=== PATIENT | female | born 1960 | race Caucasian/White ===

== ENCOUNTER 2016-07-08 00:16 | Observation (INO) ==
[2016-07-08] MEDS ORDERED: ALTEPLASE IVP ONE (00:41)
[2016-07-08] MEDS ORDERED: ALTEPLASE IVPB ONE (00:41)
--- NOTE | 2016-07-08 00:48 | Emergency Department Note ---
Disposition Clinical Impression: Stroke-like symptoms, Left-sided weakness Disposition: Admitted As Inpatient Condition: Good Time of Disposition: 02:20 Neuro HPI - General Chief Complaint: ED Neuro Symptoms/Deficit Stated Complaint: balance off// vision problems Time Seen by Provider: 07/08/16 00:29 Source: patient Limitations: no limitations Nursing Notes Reviewed: Yes Vital Signs Reviewed: Yes - History of Present Illness HPI Narrative: Patient presents emergency room with complaint of drifting while walking left- sided weakness and left-sided facial tingling and blurry vision left eye. Onset was approximately 2100 hrs. denies any other symptoms prior to this no other medical history. Onset of Symptoms Date: 07/07/16 Onset of Symptoms Time: 01:56 Symptom Onset Unknown: Yes Timing confirmed by: other Location: left face, left arm, left leg, ataxia History of same: No Severity: mild Quality: weakness Symptoms Improving: No Improves with: none Worsens with: none Context: sudden onset On Anticoagulants: No Associated symptoms: Reports: denies other symptoms Treatments Prior to Arrival: none - Related Data Home Medications: Home Medications Medication Instructions Recorded Confirmed Ibuprofen 02/29/16 02/29/16 Neurontin 02/29/16 Previous Rx's Medication Instructions Recorded Amoxicillin/Clavulanate [Augmentin] 875 mg PO BIDWM #20 tablet 02/29/16 Cyclobenzaprine HCl 5 mg PO TID PRN #30 tablet 02/29/16 MethylPREDNISolone [Medrol] See Taper PO DAILY #21 tablet 02/29/16 Tramadol HCl [Ultram] 50 mg PO TID PRN #9 tab 02/29/16 Allergies/Adverse Reactions: Allergies Allergy/AdvReac Type Severity Reaction Status Date / Time ketoprofen [From Orudis] Allergy Itching Verified 02/29/16 18:42 nabumetone [From Relafen] Allergy Itching Verified 02/29/16 18:42 All systems ED: reviewed and negative except as stated. Eyes: Denies: eye pain Cardiovascular: Denies: chest pain Genitourinary: Denies: dysuria, frequency Neurological: Reports: abnormal gait. Denies: headache, weakness Past Medical History - Past Medical History Attestation: Yes The following information was validated with the patient. Source: patient Medical history: Reports: fibromyalgia, migraine, other Psychiatric history: Reports: no psych history - Social History Smoking Status: Current every day smoker Smokeless Tobacco Status: No Alcohol use: Reports: rarely Drug use: Reports: none Physical Exam - General Limitations: no limitations General appearance: alert, in no apparent distress - Head Head exam: atraumatic, normocephalic, normal inspection - Eye Eye exam: Present: normal appearance, PERRL, EOMI, other (Left-sided ptosis) - Chest Chest inspection: Present: normal inspection, symmetric chest wall rise - Respiratory Respiratory exam: Present: normal lung sounds bilaterally - Extremities Exam Extremities exam: Present: normal inspection, full ROM, normal capillary refill. Absent: tenderness, pedal edema - Back Exam Back exam: Present: normal inspection - Neurological Exam Neurological exam: Present: alert, oriented X3, CN II-XII intact, normal gait, motor sensory deficit (Left-sided shaking in the extremities as well as decreased sensation to the left side of the face) - Skin Skin exam: Present: warm, dry, intact, normal color Course Course Narrative: Patient seen and examined the time of arrival. See history of present illness. 56-year-old female presents with what appears to be acute onset of strokelike symptoms. Stroke alert was called immediately on presentation. Patient had blurry vision left eye decreased sensation left side of the face as well as shaking to the left upper and left lower extremity with cerebellar function testing. An aortic stroke scale on my evaluation the bedside appears to be 3- 4. Patient to have stroke alert protocol followed at this time. Vital signs reviewed. No other specific medical history. She has a migraines and fibromyalgia but is never like this before. Denies any recent illnesses injuries trauma or symptoms. Denied chest pain shortness of breath headache vision changes nausea vomiting or diarrhea prior to the events today. Denies any other concerns at this point. Patient is still focally having the symptoms at this time. We will continue to monitor stroke alert protocol is followed. Labs CT imaging stroke robot as well as EKG to be established at this time. - Reevaluation(s) Reevaluation #1: CAT scan imaging is negative for acute intracranial related bleed. Detailed review and bedside evaluation was completed by the [facility] neurosurgeon Dr. montilla at the time of his evaluation patient had an and a stroke scale of 1. Mild symptoms noted on evaluation and did not recommend TPA. Recommended further inpatient evaluation for strokelike symptoms. We will call to the patient's labs here in the discuss admission process with the hospitalist. Consult neurology was replaced. Patient is otherwise stable comfortably in the bed. Will treat with migraine cocktail with the patient continues to complain of pain. Otherwise patient still resting comfortably in the bed. To monitor his workup and treatment course are completed Time: :17 Reevaluation #2: Patient was discussed with the hospitalist Dr. Gamez. The patient's symptoms presentation neurologic evaluation and consultation at [facility]. No other recommendations at this time except of participation first dose aspirin. Patient is otherwise stable resting comfortably in the bed. Admission process to be completed this time. We will continue to monitor here in the emergency room and admission process is completed Time: :17 Vital Signs Temperature 97.4 F L 07/08/16 00:17 Pulse Rate 75 07/08/16 00:17 Respiratory Rate 18 07/08/16 00:17 Blood Pressure 139/87 07/08/16 00:17 O2 Sat by Pulse Oximetry 100 07/08/16 00:17 Temperature 97.4 F L 07/08/16 00:17 Pulse Rate 77 07/08/16 02:06 Respiratory Rate 20 07/08/16 02:06 Blood Pressure 107/87 07/08/16 02:06 O2 Sat by Pulse Oximetry 95 07/08/16 02:06 Oxygen Delivery Oxygen Delivery Room Air Neuro Symptoms/Deficit - MDM Narrative Medical decision making narrative: Strokelike symptoms, left-sided weakness - Medical Records Medical records reviewed: Yes I reviewed the patient's medical records. - Lab Data Lab results reviewed: Yes I reviewed the patient's lab results. Result diagrams: 07/08/16 00:46 07/08/16 00:46 Lab Results 07/08/16 07/08/16 07/08/16 Range/Units 00:29 00:46 00:46 WBC 8.1 (4.3-11.1) K/mcL RBC 4.00 (3.82-4.97) M/mcL Hgb 12.8 (11.5-15.4) g/dL Hct 38.0 (35.3-44.9) % MCV 95.0 (83.0-100.0) fL MCH 32.0 (28.0-33.3) pg MCHC 33.7 (31.6-35.5) g/dL RDW 12.6 (11.5-14.5) % Plt Count 177 (140-400) K/mcL MPV 10.2 (9.4-12.4) fL Immature Gran % 0.2 (0-4) % Seg Neutrophils % 44.2 % Lymphocytes % 44.6 % Monocytes % 5.8 % Eosinophils % 4.0 % Basophils % 1.2 % Neutrophils # 3.6 (1.6-8.9) K/mcL Lymphocytes # 3.6 (0.6-4.6) K/mcL Monocytes # 0.5 (0.0-1.3) K/mcL Eosinophils # 0.3 (0.0-0.6) K/mcL Basophils # 0.1 (0.0-0.2) K/mcL PT 11.3 (9.4-12.1) Seconds INR 1.0 APTT 32.0 (26.0-36.0) Seconds Sodium (136-145) mEq/L Potassium (3.5-4.5) mEq/L Chloride (98-109) mEq/L Carbon Dioxide (19-29) mEq/L BUN (7-20) mg/dL Creatinine (0.57-1.11) mg/dL Est GFR ( Amer) (> 60) Est GFR (Non-Af Amer) (> 60) BUN/Creatinine Ratio (6-26) Glucose (70-99) mg/dL POC Glucose 129 H (58-89) Calculated Osmolality (280-300) Calcium (8.6-10.8) mg/dL Troponin I (0-0.03) ng/mL Urine Color (Yellow) Urine Clarity (Clear) Urine pH (5.0-8.0) pH Units Ur Specific [place] (1.010-1.025) Urine Protein (Neg-Trace) mg/dL Urine Glucose (UA) (Normal) mg/dL Urine Ketones (Negative) mg/dL Urine Blood (Negative) Urine Nitrite (Negative) Urine Bilirubin (Negative) Urine Urobilinogen (Normal) mg/dL Ur Leukocyte Esterase (Negative) Ur Culture Indicated? (NO) 07/08/16 07/08/16 07/08/16 Range/Units 00:46 00:46 01:49 WBC (4.3-11.1) K/mcL RBC (3.82-4.97) M/mcL Hgb (11.5-15.4) g/dL Hct (35.3-44.9) % MCV (83.0-100.0) fL MCH (28.0-33.3) pg MCHC (31.6-35.5) g/dL RDW (11.5-14.5) % Plt Count (140-400) K/mcL MPV (9.4-12.4) fL Immature Gran % (0-4) % Seg Neutrophils % % Lymphocytes % % Monocytes % % Eosinophils % % Basophils % % Neutrophils # (1.6-8.9) K/mcL Lymphocytes # (0.6-4.6) K/mcL Monocytes # (0.0-1.3) K/mcL Eosinophils # (0.0-0.6) K/mcL Basophils # (0.0-0.2) K/mcL PT (9.4-12.1) Seconds INR APTT (26.0-36.0) Seconds Sodium 140 (136-145) mEq/L Potassium 4.1 (3.5-4.5) mEq/L Chloride 106 (98-109) mEq/L Carbon Dioxide 27 (19-29) mEq/L BUN 15 (7-20) mg/dL Creatinine 0.83 (0.57-1.11) mg/dL Est GFR ( Amer) > 60 (> 60) Est GFR (Non-Af Amer) > 60 (> 60) BUN/Creatinine Ratio 18 (6-26) Glucose 112 H (70-99) mg/dL POC Glucose (58-89) Calculated Osmolality 292 (280-300) Calcium 9.3 (8.6-10.8) mg/dL Troponin I 0.01 (0-0.03) ng/mL Urine Color Yellow (Yellow) Urine Clarity Clear (Clear) Urine pH 5.5 (5.0-8.0) pH Units Ur Specific [place] 1.027 H (1.010-1.025) Urine Protein Negative (Neg-Trace) mg/dL Urine Glucose (UA) Normal (Normal) mg/dL Urine Ketones Negative (Negative) mg/dL Urine Blood Negative (Negative) Urine Nitrite Negative (Negative) Urine Bilirubin Negative (Negative) Urine Urobilinogen Normal (Normal) mg/dL Ur Leukocyte Esterase Negative (Negative) Ur Culture Indicated? NO (NO) - Radiology Data Radiology results reviewed: Yes I reviewed the patient's radiology results. CT that is negative. Chest x-ray is negative - EKG Data EKG attestation: Yes I reviewed and interpreted this EKG. EKG shows normal: sinus rhythm, axis, intervals, QRS complexes, ST-T waves Rate: normal Rhythm: NSR, PVC's [place]/QRS: normal When compared to previous EKG there are: no significant changes Interpretation: no acute changes, normal EKG (10/04/08), unchanged when compared to prior tracing (date) NIH Stroke Scale - Level of Consciousness LOC: Alert - LOC Questions LOC Questions: Answers both correctly - LOC Commands LOC Commands: Performs both correctly - Best Gaze Best Gaze: Normal - Visual Visual: No visual loss - Facial Palsy Facial Palsy: Normal - Motor Arms Motor Arm-Left: Drift, does NOT hit bed Motor Arm-Right: No drift for 10 seconds - Motor Legs Motor Leg-Left: Drift, does NOT hit bed Motor Leg-Right: No drift for 5 seconds - Limb Ataxia Limb Ataxia: Present in ONE limb - Sensory Sensory: Mild to moderate loss, "not as sharp" - Best Language Best Language: No aphasia - Dysarthria Dysarthria: Normal - Extinction and Inattention Extinction and Inattention: Normal - NIHSS Total Score NIHSS Total Score: 4 TPA Checklist - Eligibilty for IV tPA 1. LKW equal to or less than 4.5 hours be before treatment: Yes 2. Clinical diagnosis of ischemic stroke causing deficit: Yes 3. Age 18 years or older: Yes - Contraindications 4. Evidence of intracranial hemorrhage on pretreatment CT: No 5. Presentation suggests subarachnoid hem, even if CT normal: No 6. CT shows multilobar infarction: No 7. History of intracranial hemorrhage: No 8. Known neoplasm, arteriovenous malformation, or aneurysm: No 9. Significant head trauma (w/ LOC) or CVA in last 3 months: No 10. Intracranial or intraspinal surgery in 3 months: No 11. Arterial puncture at non-compressable site/LP in 7 days: No 12. BP elevated (systolic > 185 or diastolic > 110): No 13. Abnormal Blood Glucose (<50 or >400mg/dl): No 14. Active internal bleeding: No 15. Known bleeding risk (including; not limited to 16-18): No 16. Heparin/argatroban/bivalirudin w/in 48hrs & PTT > normal: No 17. Platelet count less than 100,000/MM3: No 18. Current or recent use of anticoagualants (see protocol): No - Relative Contraindications 19. Only minor or rapidly improving stroke symptoms: Yes 20. Seizure at onset w/ postictal residual neuro impairments: No 21. : No 22. Current/recent use Effient (7 days) or Brilinta (5 days): No 23. Major surgery or serious truama in last 14 days: No 24. GI or urinary tract hemorrhage in last 21 days: No 25. Myocardial infarction within last 3 months: No - LKW: 3-4.5 hrs Add. Contraindications 26. Age greater than 80 years: No 27. Taking an oral anticoagualant regardless of INR: No 28. Severe CVA as assessed (NIHSS > 25) or by imaging: No 29. Combination of previous CVA AND diabetes: No Critical Care Time Critical Care Time: Yes Total Critical Care Time: 35 Attestation: Independent of medical management and ER treatment course Critical care performed: Time is exclusive of separately billable procedures. Time includes: direct patient care, patient reassessment, coordination of patient care, interpretation of data (laboratory data, radiology data, and respiratory data), review of patient's medical records, medical consultation and documentation of patient care. Procedures included in critical care time: Procedures excluded from critical care time: Attestation Statement - Attestation Attestation: IJosh MD, personally evaluated this patient and discussed their management with the resident physician. I reviewed the resident's note and agree with the documented findings, medical decision making, and plan of care. 56-year-old female presented to the emergency department with strokelike symptoms which started approximately 3 hours prior to arrival. She complains that she was at work when she noticed that she was having trouble thinking. She then developed some visual changes and states that the vision in her left eye appeared to be "layers. She felt off balance and Falling to the left with walking. She did not fall down or injure herself. She had an episode of left occipital pain which lasted for about 5 minutes and then developed numbness on the left side of her head and left side of her face. Symptoms have improved since onset On examination patient is a well-developed well-nourished female in no acute distress. She is alert and oriented 3. There is no cyanosis or diaphoresis. Speech is clear. He has mild left facial drooping and decreased sensation to touch in the left face. Otherwise no gross focal neurological deficits. Neck is supple and nontender with full range of motion. Breath sounds are clear and equal bilaterally. Heart regular rate and rhythm. Abdomen soft and nontender with normal bowel sounds. Stroke alert head CT obtained and was negative. Labs reviewed. No acute abnormality on EKG. Patient was evaluated by the [facility] neurologist via the stroke robot and the neurologist recommended no TPA but hospital admission for further evaluation. The hospitalist, Dr. [email or web address], was consulted and accepted admission of the patient.
[2016-07-08 00:56] LABS: Basophils # 0.1 K/mcL (0.0-0.2); Basophils % 1.2 %; Eosinophils # 0.3 K/mcL (0.0-0.6); Hemoglobin 12.8 g/dL (11.5-15.4); Immature Granulocytes % 0.2 % (0-4); Lymphocytes # 3.6 K/mcL (0.6-4.6); Lymphocytes % 44.6 %; Mean Corpuscular HGB Conc 33.7 g/dL (31.6-35.5); Mean Platelet Volume 10.2 fL (9.4-12.4); Monocytes # 0.5 K/mcL (0.0-1.3); Monocytes % 5.8 %; Neutrophils # 3.6 K/mcL (1.6-8.9); Platelet Count 177 K/mcL (140-400); Red Cell Distribution Width 12.6 % (11.5-14.5); Segmented Neutrophils % 44.2 %
[2016-07-08 01:06] LABS: Prothrombin Time 11.3 Seconds (9.4-12.1)
[2016-07-08 01:07] LABS: BUN/Creatinine Ratio 18 (6-26); Blood Urea Nitrogen 15 mg/dL (7-20); Calcium 9.3 mg/dL (8.6-10.8); Carbon Dioxide 27 mEq/L (19-29); Chloride 106 mEq/L (98-109); Glucose 112 mg/dL (70-99); Osmolality,Calculated 292 (280-300); Potassium 4.1 mEq/L (3.5-4.5); Sodium 140 mEq/L (136-145); eGFR For African Americans > 60 (> 60); eGFR For Non-African Americans > 60 (> 60)
[2016-07-08 02:02] LABS: Bilirubin,Urine Negative (Negative); Blood,Urine Negative (Negative); Clarity,Urine Clear (Clear); Color,Urine Yellow (Yellow); Glucose,Urine (UA) Normal (Normal); Ketones,Urine Negative (Negative); Leukocyte Esterase,Urine Negative (Negative); Nitrite,Urine Negative (Negative); PH,Urine 5.5 pH Units (5.0-8.0); Protein,Urine Negative (Neg-Trace); Specific Gravity,Urine 1.027 (1.010-1.025); Urobilinogen,Urine Normal (Normal)
[2016-07-08] MEDS ORDERED: Aspirin 81 MG TAB.CHEW PO ONE (02:03)
[2016-07-08] MEDS ORDERED: Acetaminophen 325 MG TABLET PO PRN ×2 (03:32→03:42)
[2016-07-08] MEDS ORDERED: Naloxone 0.4 MG/ML INJ IVP PRN (03:32)
[2016-07-08] MEDS ORDERED: *HR* Promethazine 25 MG/ML VIAL IVP PRN (03:32)
[2016-07-08] MEDS ORDERED: *HR* Morphine 2 MG/ML SYRINGE IVP PRN (03:32)
[2016-07-08] MEDS ORDERED: Acetaminophen 650 MG RECTAL SUPP RC PRN (03:43)
--- NOTE | 2016-07-08 03:48 | Internal Med History&Physical ---
Date of Encounter: 07/08/16 Time of Encounter: 03:30 Assessment and Plan (1) Left-sided weakness Current visit: Yes Status: Acute . (2) Stroke-like symptoms Current visit: Yes Status: Acute . (3) Impaired vision Current visit: Yes Status: Acute . (4) Impairment of balance Current visit: Yes Status: Acute . (5) Chronic headache disorder Current visit: Yes Status: Chronic . Qualifiers: Headache type: tension-type Intractability: not intractable Qualified Code(s): G44.229 - Chronic tension-type headache, not intractable (6) Chronic mixed headache syndrome Current visit: Yes Status: Chronic . (7) History of migraine headaches Current visit: Yes Status: Chronic . (8) Migraine equivalent syndrome Current visit: Yes Status: Acute . (9) Obesity (BMI 30-39.9) Current visit: Yes Status: Chronic . (10) Nicotine dependence with nicotine-induced disorder Current visit: Yes Status: Chronic . Qualifiers: Nicotine product type: cigarettes Qualified Code(s): F17.219 - Nicotine dependence, cigarettes, with unspecified nicotine-induced disorders (11) Transient ischemic attack (TIA) Current visit: Yes Status: Acute . Qualifiers: Transient cerebral ischemia type: unspecified Qualified Code(s): G45.9 - Transient cerebral ischemic attack, unspecified (12) Fibromyalgia Current visit: Yes Status: Chronic . (13) Chronic neck and back pain Current visit: Yes Status: Chronic . (14) Delirium due to general medical condition Current visit: Yes Status: Acute . Internal Medicine - H&P: HPI Chief complaint: Vision problems. Balance off. Left-sided weakness. Admitted From: Emergency Dept Plans for Post Hospital Care: Home History of present illness: Ms. Meraz is a 56 year old female with medical history significant for hypertension, dyslipidemia, fibromyalgia syndrome, osteoarthritis, morbid obesity, situational anxiety/?PTSD, history of migraines headaches, chronic daily headaches/chronic neck and back pain, nicotine dependency. The patient was admitted to [facility] through the emergency department with presented with concerns acute alteration in perception. She reported a complaint of feeling like drifting to the left while attempting to walk with ataxic, unsteadiness of gait. A feeling of left-sided weakness. A feeling of left facial tingling. Acute kaleidoscopic, blurring of vision primarily of the left eye. She described this as identical 3D images stacked back to back to back extending outwards into space. Normally very sharp and quick witted describes her as being very slow in responses and slow and cautious and in any physical movement. Upon presentation a stroke alert was called. Protocol discussion of case [facility] neurosurgeon. Initial CT scan of the head was negative for acute intracranial-related hemorrhage or gross abnormality. At the time of this evaluation the patient's stroke scale added showed measurable improvement from an initial high "4" down to "1". Mild symptoms noted on evaluation both motor and sensory. No aphasia. No vision loss. No gross facial palsy. TPA initiation was not recommended. The impression evaluation for stroke symptoms was advised. Findings in the being noted that normal vital signs. Afebrile. WBC 8.1 hemoglobin 12 platelets 177,000. Differential normal. PT 11.3 INR 1 PTT 32. Metabolic panel was normal. BUN 15 creatinine 0.83. Glucose 129 osmolality 292. Initial troponin 0.01. Urinalysis negative. EKG normal sinus rhythm with premature ventricular contractions noted. No acute ischemic changes apparent. Preliminary impression suggests transient ischemic accident with transient neuro deficits consistent with stroke syndrome. However presentation also finds very prominent features of chronic, daily headaches (mixed features) stemming from a chronic (posttraumatic ) neck and back pains. The patient's prior history of "classic", migraine headaches raises question of possible migrainous equivalent as motivation of current sensory and motor deficits. She does not acknowledge a classic migraine headaches she does present neck and occipital headache symptoms. Although she does not describe a classic aura or scotomata, very stereotypic kaleidoscopic vision deficits she describes may indeed be a scotomatous equivalent. The patient presents risk for acute clinical decline with her current presentation. Workup and treatments will proceed comprehensively. The patient was visited and interviewed and examined. At the time of this examination she was less alert (likely medicated) and somewhat delirious. served as the validating source for history of events and the circumstances. Cumulative laboratory and radiographic database was reviewed and considered. Consultative opinions will be sought as clinical circumstances justify. Initial consultative opinion has been requested of neurology. Plan of care has been discussed in detail with patient's at the bedside. Questions addressed. Hospital course will be dependent upon clinical findings, treatment response and potential consultative interventions. Given the patient's presenting concerns, past medical history, clinical findings and symptoms, she is admitted at this time to undergo further evaluation and disposition. Orders were written as per the computerized physician country printer system. Condition is serious. Prognosis is guarded. CODE STATUS is full. Past Med Surg Social Fam HX - Past Medical History Source: old records reviewed Medical history: arthritis, fibromyalgia, hyperlipidemia, migraine, other Psychiatric history: anxiety, PTSD, other - Past Surgical History Surgical History: hysterectomy, other - Social History Smoking Status: Current every day smoker Packs per day: 1 Smokeless Tobacco Status: No Alcohol use: rarely Drug use: none, unknown Occupational status: employed Current living situation: Home, With Family Activity Level: Independent ambulation, Mostly sedentary Recent Out of Country Travel Within the Last 8 Weeks: No Exposure or Possible Exposure to Illness During Travel: No - Family History Mother Hx Family Musculoskeletal Disorders: Yes (joint replaced) Hx Family Reproductive Disorders: Yes (hysterectomy) Father Hx Family Cardiac Disorders: Yes (heart attacks) Hx Family Cancer: Yes (prostate) Internal Medicine - H&P: Meds Amoxicillin/Clavulanate [Augmentin] 875 mg PO BIDWM #20 tablet 02/29/16 [Rx] Cyclobenzaprine HCl 5 mg PO TID PRN #30 tablet 02/29/16 [Rx] Ibuprofen 02/29/16 [History] MethylPREDNISolone [Medrol] See Taper PO DAILY #21 tablet 02/29/16 [Rx] Neurontin 02/29/16 [History] Tramadol HCl [Ultram] 50 mg PO TID PRN #9 tab 02/29/16 [Rx] Allergies ketoprofen [From Orudis] Allergy (Verified 02/29/16 18:42) Itching nabumetone [From Relafen] Allergy (Verified 02/29/16 18:42) Itching ROS unobtainable: due to mental status All Systems PM: A 10-system review of systems was performed and is negative for pertinent findings except as documented above in the HPI. During the time of my exam the patient was mildly encephalopathic/delirium. She was not been effective historian of circumstances and events. Details were thus collected from records , EMS and ED staff triage and at the bedside. - Constitutional Constitutional: as per HPI - EENT Eyes: as per HPI Ears: as per HPI Nose, mouth and throat: as per HPI - Cardiovascular Cardiovascular ROS IM: as per HPI - Respiratory Respiratory: as per HPI - Gastrointestinal Gastrointestinal: as per HPI - Genitourinary Genitourinary: as per HPI Menstruation: as per HPI - Musculoskeletal Musculoskeletal ROS IM: as per HPI - Integumentary Integumentary IM: as per HPI - Neurological Neurological ROS: as per HPI - Psychiatric Psychiatric: as per HPI - Endocrine Endocrine IM: as per HPI - Hematologic/Lymphatic Hematologic/Lymphatic: as per HPI - Allergic/Immunologic Allergic/Immunologic: as per HPI - Constitutional Vitals: Temp Pulse Resp BP Pulse Ox 97.4 F L 61 18 132/118 95 07/08/16 03:30 07/08/16 03:30 07/08/16 03:30 07/08/16 03:30 07/08/16 03:30 Vital Signs Temp Pulse Resp BP Pulse Ox 07/08/16 03:30 97.4 F L 61 18 132/118 95 07/08/16 03:01 18 132/85 07/08/16 02:46 75 18 132/85 94 07/08/16 02:06 77 20 107/87 95 07/08/16 01:10 72 18 132/83 98 07/08/16 00:17 97.4 F L 75 18 139/87 100 Intake and Output 07/07/16 07/07/16 07/08/16 15:59 23:59 07:59 Other: Weight 93.1 kg Blood Glucose* 129 Patient Weight 07/08/16 23:59 Weight 93.1 kg General appearance: Present: cooperative, A&O X 2, mild distress, morbidly obese - Head Head exam: Present: atraumatic, normocephalic - Eye Eye exam: Present: EOMI, PERRL, conjuntiva pink, sclera anicteric Pupils: Present: normal accommodation, PERRL - ENT ENT exam: Present: mucous membranes moist, normal oropharynx - Neck Neck exam general surgery: Present: tenderness, supple, trachea midline. Absent : lymphadenopathy, nuchal rigidity - Respiratory Respiratory exam: Present: decreased breath sounds, CTAB. Absent: accessory muscle use, rales, rhonchi, stridor, wheezes - Cardiovascular Cardiovascular exam: Present: distant heart sounds, RRR, +S1, +S2. Absent: diastolic murmur, gallop, rubs, systolic murmur - GI/Abdominal GI/Abdominal exam: Present: diminished bowel sounds, soft, no peritoneal signs. Absent: distended, tenderness - Extremities Exam Extremities exam: Present: warm, radial pulses palpable and symetrical. Absent : calf tenderness, cyanotic, pedal edema - Neurological Exam Neurological exam: Present: alert, altered, CN II-XII intact, no focal deficits. Absent: oriented X3, pronater drift, facial droop, speech deficit - Expanded Neurological Exam Neurological exam expanded: Present: ataxia, inattentive, protecting the airway. Absent: expressive aphasia, receptive aphasia, tremor Patient oriented to: Present: person, place. Absent: time Speech: Present: garbled Coma Scale Eye Opening: To Pain Coma Scale Motor Response: Localizes to Pain Coma Scale Verbal Response: Confused Coma Scale Total: 11 - Psychiatric Psychiatric exam: Present: flat affect - Skin Skin exam: Present: dry, intact, warm. Absent: petechiae, rash, urticaria, vesicles Internal Med - H&P Results - Labs CBC & Chem 7: 07/08/16 00:46 07/08/16 04:14 Labs: Short CBC 07/08/16 Range/Units 00:46 WBC 8.1 (4.3-11.1) K/mcL Hgb 12.8 (11.5-15.4) g/dL Hct 38.0 (35.3-44.9) % Plt Count 177 (140-400) K/mcL Neutrophils # 3.6 (1.6-8.9) K/mcL BMP 07/08/16 Range/Units 00:46 Sodium 140 (136-145) mEq/L Potassium 4.1 (3.5-4.5) mEq/L Chloride 106 (98-109) mEq/L Carbon Dioxide 27 (19-29) mEq/L BUN 15 (7-20) mg/dL Creatinine 0.83 (0.57-1.11) mg/dL Glucose 112 H (70-99) mg/dL Calcium 9.3 (8.6-10.8) mg/dL Cardiac Enzymes 07/08/16 Range/Units 00:46 Troponin I 0.01 (0-0.03) ng/mL Urine 07/08/16 Range/Units 01:49 Urine Color Yellow (Yellow) Urine Clarity Clear (Clear) Urine pH 5.5 (5.0-8.0) pH Units Ur Specific [place] 1.027 H (1.010-1.025) Urine Protein Negative (Neg-Trace) mg/dL Urine Glucose (UA) Normal (Normal) mg/dL Abnormal lab results Glucose 112 mg/dL (70-99) H 07/08/16 00:46 POC Glucose 129 (58-89) H 07/08/16 00:29 Ur Specific [place] 1.027 (1.010-1.025) H 07/08/16 01:49 Laboratory Results WBC 8.1 K/mcL (4.3-11.1) 07/08/16 00:46 RBC 4.00 M/mcL (3.82-4.97) 07/08/16 00:46 Hgb 12.8 g/dL (11.5-15.4) 07/08/16 00:46 Hct 38.0 % (35.3-44.9) 07/08/16 00:46 MCV 95.0 fL (83.0-100.0) 07/08/16 00:46 MCH 32.0 pg (28.0-33.3) 07/08/16 00:46 MCHC 33.7 g/dL (31.6-35.5) 07/08/16 00:46 RDW 12.6 % (11.5-14.5) 07/08/16 00:46 Plt Count 177 K/mcL (140-400) 07/08/16 00:46 MPV 10.2 fL (9.4-12.4) 07/08/16 00:46 Immature Gran % 0.2 % (0-4) 07/08/16 00:46 Seg Neutrophils % 44.2 % 07/08/16 00:46 Lymphocytes % 44.6 % 07/08/16 00:46 Monocytes % 5.8 % 07/08/16 00:46 Eosinophils % 4.0 % 07/08/16 00:46 Basophils % 1.2 % 07/08/16 00:46 Neutrophils # 3.6 K/mcL (1.6-8.9) 07/08/16 00:46 Lymphocytes # 3.6 K/mcL (0.6-4.6) 07/08/16 00:46 Monocytes # 0.5 K/mcL (0.0-1.3) 07/08/16 00:46 Eosinophils # 0.3 K/mcL (0.0-0.6) 07/08/16 00:46 Basophils # 0.1 K/mcL (0.0-0.2) 07/08/16 00:46 PT 11.3 Seconds (9.4-12.1) 07/08/16 00:46 INR 1.0 07/08/16 00:46 APTT 32.0 Seconds (26.0-36.0) 07/08/16 00:46 Sodium 140 mEq/L (136-145) 07/08/16 00:46 Potassium 4.1 mEq/L (3.5-4.5) 07/08/16 00:46 Chloride 106 mEq/L (98-109) 07/08/16 00:46 Carbon Dioxide 27 mEq/L (19-29) 07/08/16 00:46 BUN 15 mg/dL (7-20) 07/08/16 00:46 Creatinine 0.83 mg/dL (0.57-1.11) 07/08/16 00:46 Est GFR ( Amer) > 60 (> 60) 07/08/16 00:46 Est GFR (Non-Af Amer) > 60 (> 60) 07/08/16 00:46 BUN/Creatinine Ratio 18 (6-26) 07/08/16 00:46 Glucose 112 mg/dL (70-99) H 07/08/16 00:46 POC Glucose 129 (58-89) H 07/08/16 00:29 Calculated Osmolality 292 (280-300) 07/08/16 00:46 Calcium 9.3 mg/dL (8.6-10.8) 07/08/16 00:46 Troponin I 0.01 ng/mL (0-0.03) 07/08/16 00:46 Urine Color Yellow (Yellow) 07/08/16 01:49 Urine Clarity Clear (Clear) 07/08/16 01:49 Urine pH 5.5 pH Units (5.0-8.0) 07/08/16 01:49 Ur Specific [place] 1.027 (1.010-1.025) H 07/08/16 01:49 Urine Protein Negative mg/dL (Neg-Trace) 07/08/16 01:49 Urine Glucose (UA) Normal mg/dL (Normal) 07/08/16 01:49 Urine Ketones Negative mg/dL (Negative) 07/08/16 01:49 Urine Blood Negative (Negative) 07/08/16 01:49 Urine Nitrite Negative (Negative) 07/08/16 01:49 Urine Bilirubin Negative (Negative) 07/08/16 01:49 Urine Urobilinogen Normal mg/dL (Normal) 07/08/16 01:49 Ur Leukocyte Esterase Negative (Negative) 07/08/16 01:49 Ur Culture Indicated? NO (NO) 07/08/16 01:[address] 07/08/16 00:29 IMPRESSION: No CT evidence of an acute infarct. Case discussed with Dr. Woodruff at 12:56 a.m. on 07/08/2016 as per stroke protocol. D/ / Amado Thomas MD / Amado Thomas MD Interpreting Provider: Amado Thomas MD
[2016-07-08 04:27] LABS: Amphetamine Screen,Urine Negative ng/mL (Cutoff=1000); Barbiturate Screen,Urine Negative ng/mL (Cutoff=200); Benzodiazepines Screen,Urine Negative ng/mL (Cutoff=200); Cannabinoid Screen,Urine Negative ng/mL (Cutoff = 50); Cocaine Screen,Urine Negative ng/mL (Cutoff= 300); Opiate Screen,Urine Negative ng/mL (Cutoff=300); Phencyclidine Screen,Urine Negative ng/mL (Cutoff=25)
[2016-07-08] MEDS: 0.9 % Sodium Chloride 1,000 ML IVC SCH (04:48)
[2016-07-08 04:52] LABS: Prothrombin Time 11.3 Seconds (9.4-12.1)
[2016-07-08 04:55] LABS: VBG PH 7.38 pH Units (7.32-7.42)
[2016-07-08 05:09] LABS: Alanine Aminotransferase 17 Units/L (0-55); Albumin 3.3 g/dL (3.5-5.0); Alkaline Phosphatase 94 Units/L (38-126); Aspartate Amino Transferase 11 Units/L (5-34); BUN/Creatinine Ratio 21 (6-26); Bilirubin,Total 0.4 mg/dL (0.2-1.2); Blood Urea Nitrogen 15 mg/dL (7-20); Calcium 9.1 mg/dL (8.6-10.8); Carbon Dioxide 23 mEq/L (19-29); Chloride 107 mEq/L (98-109); Chol/HDL Ratio 5.9 (0-4.9); Cholesterol 212 mg/dL (< 200); Globulin 3.4 g/dL (2.4-3.5); Glucose 99 mg/dL (70-99); HDL Cholesterol 36 mg/dL (40-59); Hemoglobin A1C 5.5 %; LDL Cholesterol,Calculated 153 mg/dL (0-99); Magnesium 1.7 mg/dL (1.6-2.6); Osmolality,Calculated 287 (280-300); Phosphorous 3.9 mg/dL (2.3-4.7); Potassium 4.1 mEq/L (3.5-4.5); Sodium 138 mEq/L (136-145); Total Protein 6.7 g/dL (6.0-8.3); Triglycerides 116 mg/dL (< 150); eGFR For African Americans > 60 (> 60); eGFR For Non-African Americans > 60 (> 60)
[2016-07-08 05:10] LABS: Ethanol < 10 mg/dL (0-10)
[2016-07-08 05:15] LABS: Ionized Calcium 1.06 mmol/L (1.15-1.35)
[2016-07-08] MEDS: Pantoprazole 40 MG VIAL IVP SCH (08:42)
[2016-07-08] MEDS: *HR* OxyCODONE Immed Rel 5 MG TABLET PO PRN ×2 (08:44→15:09)
[2016-07-08] MEDS: Aspirin 81 MG TAB.CHEW PO SCH (08:44)
--- NOTE | 2016-07-08 10:56 | Neurology - Consult Note ---
Date of Encounter: 07/08/16 Time of Encounter: 10:49 Assessment and Plan (1) Stroke-like symptoms Current Visit: Yes Status: Acute these are nonspecific symptoms with less localizing value and with association of occipital headache, proceeded by visual changes and confusion, likely complicated migraine phenomenon. Does have history of migraine in the past although they are less frequent after menopause. Does have risk factor for CVA/ TIA due to HTN and hyperlipidemia so i aggress with CVA work up including MRI of brain, MRA of brain, echocardiography and carotid artery duplex. Continue aspirin 81mg daily. Regulate BP. Treat headache symptomatically History of Present Illness Chief complaint: headaches and confusion HPI: Ms. Meraz is a 56 year old female with HTN, tobacco use, history of lumbar radiculopathy and history of migraine who developed acute onset of confusion, trouble concentrating, visual disturbances and occipital headaches at work. This occurred last evening about about 9:30pm while at work. 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 Was having some left sided weakness? and balance difficulty as well. Went to ER and initial CT of head was reported no acute intracranial abnormality. Does have history of migraines especially prior to hysterectomy. Now, no focal weakness noted. Speech appears intact. No mental status changes. No fever. At times neck muscle is tight Past Med Surg Social Fam HX - Past Medical History Medical history: arthritis, fibromyalgia, hyperlipidemia, migraine, other Psychiatric history: anxiety, PTSD, other - Past Surgical History Surgical History: hysterectomy, other - Social History Smoking Status: Current every day smoker Packs per day: 1 Smokeless Tobacco Status: No Alcohol use: rarely Drug use: none, unknown - Family History Mother Hx Family Musculoskeletal Disorders: Yes (joint replaced) Hx Family Reproductive Disorders: Yes (hysterectomy) Father Hx Family Cardiac Disorders: Yes (heart attacks) Hx Family Cancer: Yes (prostate) Medications and Allergies Amoxicillin/Clavulanate [Augmentin] 875 mg PO BIDWM #20 tablet 02/29/16 [Rx] Cyclobenzaprine HCl 5 mg PO TID PRN #30 tablet 02/29/16 [Rx] Ibuprofen 02/29/16 [History] MethylPREDNISolone [Medrol] See Taper PO DAILY #21 tablet 02/29/16 [Rx] Neurontin 02/29/16 [History] Tramadol HCl [Ultram] 50 mg PO TID PRN #9 tab 02/29/16 [Rx] Allergies ketoprofen [From Orudis] Allergy (Verified 02/29/16 18:42) Itching nabumetone [From Relafen] Allergy (Verified 02/29/16 18:42) Itching All Systems: A 10-system review of systems was performed and is negative for pertinent findings except as documented above in the HPI. Physical Examination - Vital Signs Vital Signs: Initial Vital Signs Temp Pulse Resp BP Pulse Ox 97.4 F L 75 18 139/87 100 07/08/16 00:17 07/08/16 00:17 07/08/16 00:17 07/08/16 00:17 07/08/16 00:17 - Constitutional General appearance: comfortable - Neurologic Sensorimotor examination: intact Detailed motor examination: grossly full strength in all extremities Motor examination - right side: 5/5: deltoids, biceps, triceps, wrist flexion, wrist extension, paper conservator, hip flexors, tibialis Anterior, quadriceps, toe extension (EHL), plantarflexion Motor examination - left side: 5/5: deltoids, biceps, triceps, wrist flexion, wrist extension, hip flexors, paper conservator, quadriceps, tibialis Anterior, toe extension (EHL), plantarflexion Detailed sensory examination: intact Posture: other (None) Reflex and gait examination: intact Mental Status Examination: awake, alert, oriented to person, oriented to place, oriented to time, follows commands appropriately, answers questions appropriately, no agnosia, no aphasia, no aproxia Cranial nerve examination: PERRL, EOMI, visual otto intact, corneal reflexes brisk symmetrically, sensory to face intact, mastication intact, no facial asymmetry is present, no dysarthria, hearing is intact symmetrically, soft palate elevates bilaterally upon phonation, gag reflex intact, flexes SCM and trapezius muscles symmetrically with full power, tongue protrudes midline, no atrophy or facial fasiculations present Results - Laboratory Findings CBC and BMP: 07/08/16 00:46 07/08/16 04:14 Abnormal lab findings: Abnormal lab results ESR 24 mm/hr (0-15) H 07/08/16 04:14 VBG pO2 54 mmHg (25-40) H 07/08/16 04:14 POC Glucose 129 (58-89) H 07/08/16 00:29 Ionized Calcium 1.06 mmol/L (1.15-1.35) L 07/08/16 04:14 Albumin 3.3 g/dL (3.5-5.0) L 07/08/16 04:14 Albumin/Globulin Ratio 1.0 (1.1-2.2) L 07/08/16 04:14 Cholesterol 212 mg/dL (< 200) H 07/08/16 04:14 LDL Cholesterol, Calc 153 mg/dL (0-99) H 07/08/16 04:14 HDL Cholesterol 36 mg/dL (40-59) L 07/08/16 04:14 Cholesterol/HDL Ratio 5.9 (0-4.9) H 07/08/16 04:14 Ur Specific [place] 1.027 (1.010-1.025) H 07/08/16 01:49 Consult Discharge Plan - Plan Referrals: Saroj Tlelo Jr, MD [Primary Care Provider] -
--- NOTE | 2016-07-08 12:43 | ECHO - Doppler Report ---
Echo with Saline Contrast Name: Yessica Meraz Date of Study: 07/08/2016 Date: 1960 Ht: 64.0 in Medical Record#: [id number] Age: 56 Wt: 205.0 lb Gender: Female BSA: 1.98 Order #: [id number] Location: [facility] Room #: [id number] Reading Physician: Reece Saldaña MD, [facility] Solar Thermal Technician: Turner Brown RVT, [facility] Ordering Physician: Ho Atkins MD Primary Physician: Saroj Tello MD Indications: Cerebrovascular Accident Impressions: LVEF 55-60%. No pulmonary hypertension. Mild left ventricular diastolic dysfunction. No significant valvular dysfunction. Left Ventricular Wall Motion: Rest Echo Findings All wall segments showed normal motion. Findings: Study Quality * Technically adequate exam. Right Ventricle * Normal right ventricular structure and function. Left Atrium * Normal left atrial size. Right Atrium * Normal right atrial size. Aortic Valve * Trileaflet aortic valve with normal function. Mitral Valve * Normal mitral valve structure and function. Interatrial Septum * No evidence of PFO by color Doppler or agitated saline Aorta * Normally sized aortic root. Pericardium * The pericardium appears normal. ECG Findings * Normal sinus rhythm. Pulmonic Valve * Pulmonic valve is not well visualized. * No pulmonic stenosis. * No pulmonic regurgitation. Tricuspid Valve * Trace tricuspid regurgitation. * No tricuspid stenosis. * Estimated RA pressure is 3-5 mmHg. * No pulmonary hypertension. * Estimated RVSP is 33 mmHg. Left Ventricle * LVEF 55-60%. * No segmental dysfunction. * Mild left ventricular diastolic dysfunction. IVC * Normal IVC dimensions and inspiratory collapse. History Hypercholesteremia History of Smoking Years 32 Packs 1 Family History of CAD Contrast: Agitated saline 30 ml. Measurements: BP: 104/ 61 2D Normal Values RVIDd: 3.54 cm <2.7 cm IVSd: 1.08 cm 0.6 - 1.0 cm LVIDd: 4.03 cm 3.7 - 5.6 cm LVPWd: 1.08 cm 0.6 - 1.1 cm LVIDs: 2.66 cm 1.5 - 3.6 cm AO: 2.70 cm < 4.0 cm LA: 3.30 cm 2.0 - 4.0cm %FS: 34.00 cm >25 % LVOT Diam: 2.10 cm LA volume: 50 Mitral Valve Peak E:.85 m/sec Peak A:.86 m/sec E/A Ratio:1 Peak E' Lat Zachary:9.46 cm/s Peak E' Med Zachary:8.59 cm/s E/E' Lat Ratio:9 E/E' Med Ratio:9.9 Tricuspid Valve TV Regurg Peak Grad: 33.00mmHg TV Regurg Peak Zachary: 2.75m/sec Updated by Reece Saldaña MD, [facility] on 07/08/2016 12:37:07 PM electronically signed on 07/08/2016 12:37:22 PM with status of Final Wall Motion Galvez: 1=Normal, 2=Hypokinesis, 3=Akinesis, 4=Dyskinesis, 5=Aneurysmal, 6=Hyperkinetic, X=Not Visualized (Blank)=Missing
--- NOTE | 2016-07-08 14:57 | Event Note ---
Date of Encounter: 07/08/16 Time of Encounter: 13:00 56 y/o female admitted during the night due to stroke-like symptoms. She has been evaluated by neurology and is currently in workup for stroke. Appears to be migraine phenomenon. Pending echo, carotid, MRI/MRA. No new physicial findings.
[2016-07-08] MEDS: Loratadine 10 MG TABLET PO SCH (15:09)
[2016-07-08] MEDS ORDERED: Ketorolac 30 MG/ML VIAL IVP ONE (15:46)
[2016-07-09] MEDS: 0.9 % Sodium Chloride 1,000 ML IVC SCH (00:04)
[2016-07-09] MEDS ORDERED: Loratadine 10 MG TABLET PO SCH (09:00)
[2016-07-09] MEDS: Pantoprazole 40 MG VIAL IVP SCH (09:07)
[2016-07-09] MEDS: Aspirin 81 MG TAB.CHEW PO SCH (09:07)
[2016-07-09] MEDS: Loratadine 10 MG TABLET PO SCH (09:07)
--- NOTE | 2016-07-09 10:33 | Neurology Progress Note ---
Date of Encounter: 07/09/16 Time of Encounter: 10:30 Assessment and Plan (1) Stroke-like symptoms Current Visit: Yes Status: Acute Stroke work up including MRI of brain, MRA of brain, echocardiography returned negative. Carotid artery duplex study also completed but result is pending. Patient's symptoms resolved and headaches improved. THe symptoms are likely related to migraine phenomenon. She does have risk factor for CVA/TIA and at this age group, keeping her on Aspirin 81mg daily can be beneficial. Patient can be discharged, if carotid artery duplex study returns unremarkable. Subjective Principal diagnosis: Migraine equivalent syndrome Interval history: Patient seen and examined. She feels better, no focal neurological deficits now. Headaches improved. MRI of brain without contrast showed no acute intracranial abnormality. MRA of the brain was reported normal. No evidence of intracranial atherosclerosis or dissection. Patient echocardiogram showed normal left ventricular ejection fraction of 60%. No regional wall motion abnormality, no valvular disease, no evidence of PFO. Patient's carotid artery duplex study was also completed and the result is pending. Objective - Constitutional Vitals: Temp Pulse Resp BP Pulse Ox 98.3 F 71 16 103/63 95 07/09/16 07:19 07/09/16 07:19 07/09/16 07:19 07/09/16 07:19 07/09/16 09:00 - Neurological Exam Sensorimotor examination: Present: intact Motor Examination: Present: grossly full strength in all extremities Motor examination - right side: 5/5: deltoids, biceps, triceps, wrist flexion, wrist extension, public relations writer, hip flexors, tibialis Anterior, quadriceps, toe extension (EHL), plantarflexion Motor examination - left side: 5/5: deltoids, biceps, triceps, wrist flexion, wrist extension, hip flexors, public relations writer, quadriceps, tibialis Anterior, toe extension (EHL), plantarflexion Sensation intact: Present: intact Posture: Present: other (None) Reflex and gait examination: intact Mental Status Examination: Present: awake, alert, oriented to person, oriented to place, oriented to time, follows commands appropriately, answers questions appropriately, no agnosia, no aphasia, no aproxia Cranial nerve examination: Present: PERRL, EOMI, visual otto intact, corneal reflexes brisk symmetrically, sensory to face intact, mastication intact, no facial asymmetry is present, no dysarthria, hearing is intact symmetrically, soft palate elevates bilaterally upon phonation, gag reflex intact, flexes SCM and trapezius muscles symmetrically with full power, tongue protrudes midline, no atrophy or facial fasiculations present - VTE Documentation of Mechanical Device: Intermittent pneumatic compression device Results - Laboratory Findings CBC and BMP: 07/08/16 00:46 07/08/16 04:14 Abnormal lab findings: Abnormal lab results ESR 24 mm/hr (0-15) H 07/08/16 04:14 VBG pO2 54 mmHg (25-40) H 07/08/16 04:14 POC Glucose 129 (58-89) H 07/08/16 00:29 Ionized Calcium 1.06 mmol/L (1.15-1.35) L 07/08/16 04:14 Albumin 3.3 g/dL (3.5-5.0) L 07/08/16 04:14 Albumin/Globulin Ratio 1.0 (1.1-2.2) L 07/08/16 04:14 Cholesterol 212 mg/dL (< 200) H 07/08/16 04:14 LDL Cholesterol, Calc 153 mg/dL (0-99) H 07/08/16 04:14 HDL Cholesterol 36 mg/dL (40-59) L 07/08/16 04:14 Cholesterol/HDL Ratio 5.9 (0-4.9) H 07/08/16 04:14 Ur Specific [place] 1.027 (1.010-1.025) H 07/08/16 01:49 Consult Discharge Plan - Plan Referrals: Saroj Tello Jr, MD [Primary Care Provider] -
[2016-07-09 12:19] VITALS: BP 132/70
[2016-07-09] MEDS ORDERED: Ketorolac 30 MG/ML VIAL IVP ONE (14:00)
--- NOTE | 2016-07-09 15:35 | Discharge Summary ---
<Ethel Malcolm - Last Filed: 07/09/16 15:30> Date of Encounter: 07/09/16 Time of Encounter: 10:00 - Discharge Diagnosis (1) Transient ischemic attack (TIA) Priority: Primary Status: Acute Qualifiers: Transient cerebral ischemia type: unspecified Qualified Code(s): G45.9 - Transient cerebral ischemic attack, unspecified (2) Left-sided weakness Priority: Secondary Status: Acute (3) Stroke-like symptoms Priority: Secondary Status: Acute (4) Impaired vision Priority: Secondary Status: Acute (5) Impairment of balance Priority: Secondary Status: Acute (6) Chronic headache disorder Priority: Secondary Status: Chronic Qualifiers: Headache type: tension-type Intractability: not intractable Qualified Code(s): G44.229 - Chronic tension-type headache, not intractable (7) Chronic mixed headache syndrome Priority: Secondary Status: Chronic (8) History of migraine headaches Priority: Secondary Status: Chronic (9) Obesity (BMI 30-39.9) Priority: Secondary Status: Chronic - Discharge Medications Prescriptions: Aspirin 81 mg PO DAILY #30 tab.chew Rosuvastatin [Crestor] 20 mg PO HS #30 tablet Home Medications: Cetirizine HCl [Zyrtec] 10 mg PO DAILY 07/08/16 [History] Diclofenac Sodium [Voltaren] 1 appl TP QID PRN 07/08/16 [History] Gabapentin [Neurontin] 300 mg PO TID 07/08/16 [History] Ibuprofen [Motrin] 800 mg PO Q8HR PRN 07/08/16 [History] Rabeprazole Sodium [Aciphex] 20 mg PO DAILY 07/08/16 [History] Vitamin B Complex [B Complex] 1 each PO DAILY 07/08/16 [History] Acetaminophen [Tylenol] 650 mg PO Q6HR PRN #0 tablet 07/09/16 [Rx] Aspirin 81 mg PO DAILY #30 tab.chew 07/09/16 [Rx] Rosuvastatin [Crestor] 20 mg PO HS #30 tablet 07/09/16 [Rx] Allergies/Adverse Reactions: Allergies ketoprofen [From Orudis] Allergy (Verified 07/08/16 12:55) Rash nabumetone [From Relafen] Allergy (Verified 07/08/16 12:55) Rash Procedures/tests Complete & Pending: Procedures Performed prior 72 hours Category Date Time Status MR angio head wo con [MR] Routine MRI 07/09/16 07:20 Draft MR head/brain wo con [MR] Routine MRI 07/09/16 07:19 Draft ECG 12 lead ECG [ECG] AM 0600 Y 07/08/16 06:00 Completed EV carotid duplex imaging BI Routine Y 07/08/16 04:04 Completed EV echocardiogram Routine Y 07/08/16 04:04 Completed Date of admission: 07/08/16 02:10 Primary care physician: Saroj Tello Jr, MD Consults: 07/08/16 03:32 Consult to Occupational Therapy [CONS] Routine Comment: Evaluate, develop and implement POC Consult to Physical Therapy [CONS] Routine Comment: Evaluate, develop and implement POC - Patient Status Disposition: Home, Self-Care Condition: Good Functional capacity at discharge: independent ambulation Overall status at discharge: patient is progressing back to baseline - Discharge Instructions Instructions: Aspirin (By mouth), Rosuvastatin (By mouth), Migraine Headache ( DC), Carotid Artery Disease (DC) Follow Up With: Saroj Tello Jr, MD [Primary Care Provider] - Eren Shell MD [Partnered Physician] - 07/11/16 3:00 pm (Follow up with vascular surgeon.) Additional Instructions: Follow up with PCP 1 week after discharge Follow up with Dr. Shell for surgical evaluation. Take all meds as prescribed. May return to work Saturday regular exercise, low fat diet. - Diet and Activity Activity: increase activity as tolerated Diet: low fat, low cholesterol Hospital course: Ms. Meraz is a 56 year old female with PMHx of HTN, HLD, fibromyalgia, OA, morbid obesity, anxiety, tobacco use. She was admitted to the hospital on for stroke workup. She had symptoms of altered perception, feelings of drifting to the left, ataxia, unsteady gait, left sided weakness, left facial tingling, blurred vision in the left eye. Stroke alert was called, but the patient was not a candidate for TPA. Patient had extensive stroke workup during her hospital stay. CT head showed no acute intracranial abnormality. Echo showed LVEF 55% with no pulmonary hypertension, mild LV diastolic dysfunction, no valvular dysfunction. Brain MRI showed chronic small vessel ischemic changes , no acute ichemic events noted. Head MRA showed no abnormality of the intracranial circulation. Consult to neurology was made. Neurology suggested that the patient's event was likely a complicated migraine, since all testing was normal. Patient did have carotid duplex done during her hospital stay, which showed right internal carotid artery with 60-79% stenosis, left internal carotid artery 40-59% stenosis. Dr. Shell (vascular surgeon) was called and informed of the results, he agreed to discharge the patient with Aspirin and have outpatient follow up for carotid endarterectomy evaluation. Patient was stable during her hospital stay, and remained stable during discharge. Plan: follow up with PCP within one week of discharge follow up with Dr. Shell for surgical evaluation Take Aspirin and Crestor as prescribed, along with other home meds. patient counseled on exercise, low fat diet. return to hospital if symptoms recur. Time spent discussing smoking cessation with patient: 3 to 10 minutes - Time Spent with Patient Total time spent providing and/or coordinating discharge services: - Constitutional Vitals: Temp Pulse Resp BP Pulse Ox 97.6 F 66 16 132/70 98 07/09/16 12:16 07/09/16 12:16 07/09/16 12:16 07/09/16 12:16 07/09/16 12:16 General appearance: Present: cooperative, A&O X 2, mild distress, morbidly obese , answers questions appropriately - Head Head exam: Present: atraumatic, normocephalic - Neck Neck exam general surgery: Present: full ROM, supple, trachea midline - Respiratory Respiratory exam: Present: CTAB - Cardiovascular Cardiovascular exam: Present: RRR, +S1, +S2 - GI/Abdominal GI/Abdominal exam: Present: normal bowel sounds. Absent: distended, tenderness - Extremities Exam Extremities exam: Absent: cyanotic, pedal edema - Neurological Exam Neurological exam: Present: alert, CN II-XII intact, oriented X3 - Psychiatric Psychiatric exam: Present: normal affect, normal mood - VTE Documentation of Mechanical Device: Intermittent pneumatic compression device <Deven Machuca - Last Filed: 07/09/16 18:48> Date of Encounter: 07/09/16 - Discharge Diagnosis (1) Transient ischemic attack (TIA) Status: Acute Qualifiers: Transient cerebral ischemia type: carotid artery syndrome (hemispheric) Qualified Code(s): G45.1 - Carotid artery syndrome (hemispheric) (2) Migraine equivalent syndrome Priority: Primary Status: Chronic (3) Carotid stenosis, right Priority: Secondary Status: Chronic (4) Chronic neck and back pain Priority: Secondary Status: Chronic (5) Impairment of balance Status: Acute (6) Fibromyalgia Priority: Secondary Status: Chronic (7) Obesity (BMI 30-39.9) Status: Chronic (8) Nicotine dependence with nicotine-induced disorder Priority: Secondary Status: Chronic Qualifiers: Nicotine product type: cigarettes Qualified Code(s): F17.219 - Nicotine dependence, cigarettes, with unspecified nicotine-induced disorders Procedures/tests Complete & Pending: Procedures Performed prior 72 hours Category Date Time Status MR angio head wo con [MR] Routine MRI 07/09/16 07:20 Completed MR head/brain wo con [MR] Routine MRI 07/09/16 07:19 Completed ECG 12 lead ECG [ECG] AM 0600 Y 07/08/16 06:00 Completed EV carotid duplex imaging BI Routine Y 07/08/16 04:04 Completed EV echocardiogram Routine Y 07/08/16 04:04 Completed Date of admission: 07/08/16 02:10 Primary care physician: Saroj Tello Jr, MD Consults: 07/08/16 03:32 Consult to Occupational Therapy [CONS] Routine Comment: Evaluate, develop and implement POC Consult to Physical Therapy [CONS] Routine Comment: Evaluate, develop and implement POC Hospital course: Ms. Meraz is a 56 year old female - Time Spent with Patient Total time spent providing and/or coordinating discharge services: - Constitutional Vitals: Temp Pulse Resp BP Pulse Ox 97.6 F 66 16 132/70 98 07/09/16 12:16 07/09/16 12:16 07/09/16 12:16 07/09/16 12:16 07/09/16 12:16 - Attending Attestation I examined this patient and my medical decision-making was reviewed with the Resident Physician on 07/09/16. I agree with the documented findings, disposition and treatment plan as described except to the extent set forth below. Ms. Meraz is doing OK today. Started to have headache but given Toradol. Vitals are stable and she is afebrile. Carotid duplex shows 60-79% on L Exam Alert. Comfortable No focal deficit Plan D/C today Follow up with PCP and vascular.
--- NOTE | 2016-07-09 15:45 | Carotid Imaging Report ---
Carotid Duplex Patient Name:Yessica Meraz Order Number:[id number] Procedure Date:07/08/2016 Date:1960ge:56 yrs Gender:Female Location:[facility] Room #: 2NE24 Cardiology Nurse:Turner Brown, RVT, RDCS Referring MD:Ho Atkins MD body mechanic:Saroj Tello MD Reading MD:Eren Shell MD Primary Indications:CVA Risk Factors Yes/No Hypertension Yes Impressions: The right internal carotid artery has a 60-79% stenosis. The left internal carotid artery has a 40-59% stenosis. Recommendations: Risk factor reduction. Further evaluation recommended if clinically indicated. Follow-up carotid duplex in 6 months. After imaging the patient returned to their room. Findings Carotid Duplex: Right: There is nonstenotic plaque in the right proximal common carotid artery with a PSV of 112 cm/s and a EDV of 32 cm/s. There is smooth heterogeneous plaque. There is nonstenotic plaque in the right mid common carotid artery with a PSV of 108 cm/s and a EDV of 27 cm/s. There is smooth heterogeneous plaque. There is nonstenotic plaque in the right distal common carotid artery with a PSV of 102 cm/s and a EDV of 35 cm/s. There is smooth heterogeneous plaque. There is nonstenotic plaque in the right bifurcation with a PSV of 104 cm/s and a EDV of 44 cm/s. There is smooth heterogeneous plaque. There is 40-59% stenosis in the right proximal internal carotid artery with a PSV of 109 cm/s and a EDV of 44 cm/s. There is 60-79% stenosis in the right mid internal carotid artery with a PSV of 133 cm/s and a EDV of 47 cm/s. There is 40-59% stenosis in the right distal internal carotid artery with a PSV of 109 cm/s and a EDV of 53 cm/s. There is nonstenotic plaque in the right eca with a PSV of 136 cm/s and a EDV of 18 cm/s. The right vertebral artery has a PSV of 56 cm/s and a EDV of 26 cm/s. Left: There is nonstenotic plaque in the left proximal common carotid artery with a PSV of 118 cm/s and a EDV of 29 cm/s. There is smooth heterogeneous plaque. There is nonstenotic plaque in the left mid common carotid artery with a PSV of 110 cm/s and a EDV of 36 cm/s. There is smooth heterogeneous plaque. There is nonstenotic plaque in the left distal common carotid artery with a PSV of 114 cm/s and a EDV of 36 cm/s. There is smooth heterogeneous plaque. There is nonstenotic plaque in the left bifurcation with a PSV of 104 cm/s and a EDV of 39 cm/s. There is smooth heterogeneous plaque. There is nonstenotic plaque in the left proximal internal carotid artery with a PSV of 82 cm/s and a EDV of 35 cm/s. There is 40-59% stenosis in the left mid internal carotid artery with a PSV of 109 cm/s and a EDV of 49 cm/s. There is nonstenotic plaque in the left distal internal carotid artery with a PSV of 105 cm/s and a EDV of 50 cm/s. There is nonstenotic plaque in the left eca with a PSV of 114 cm/s and a EDV of 23 cm/s. The left vertebral artery has a PSV of 48 cm/s and a EDV of 11 cm/s. Prior Study: No prior study available for comparison. Carotid Results Right PSV EDV Assessment Proximal CCA 112 32 Non Stenotic Plaque Mid CCA 108 27 Non Stenotic Plaque Distal CCA 102 35 Non Stenotic Plaque Bifurcation 104 44 Non Stenotic Plaque Proximal ICA 109 44 40-59% stenosis Mid ICA 133 47 60-79% stenosis Distal ICA 109 53 40-59% stenosis ECA 136 18 Non Stenotic Plaque Vertebral Artery 56 26 Antegrade Flow Left PSV EDV Assessment Proximal CCA 118 29 Non Stenotic Plaque Mid CCA 110 36 Non Stenotic Plaque Distal CCA 114 36 Non Stenotic Plaque Bifurcation 104 39 Non Stenotic Plaque Proximal ICA 82 35 Non Stenotic Plaque Mid ICA 109 49 40-59% stenosis Distal ICA 105 50 Non Stenotic Plaque ECA 114 23 Non Stenotic Plaque Vertebral Artery 48 11 Antegrade Flow Ratio's Right ICA/CCA Ratio: 1.26 ICA/CCA Values: 136/108 Left ICA/CCA Ratio: 0.99 ICA/CCA Values: 109/110 Updated by Eren Shell MD on 07/09/2016 3:40:22 PM electronically signed on 07/09/2016 3:41:42 PM with status of Final
--- NOTE | 2016-07-09 21:30 | Electrocardiograph Report ---
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
== END 2016-07-09 16:17 | disposition home or self-care (01) ==
LOC: EMEROO 00:16 → 2NENU 00:16
PROVIDERS: ADMIT Internal Medicine; ATTEND Internal Medicine

== ENCOUNTER 2016-07-18 09:31 | Inpatient (IN) ==
[2016-07-18] MEDS ORDERED: Lidocaine -MPF 1% 2 ML VIAL ID ONE (10:00)
[2016-07-18] MEDS ORDERED: Vancomycin 1,500 MG in D5% in Water 250 ML IVPB ONE (10:00)
[2016-07-18] MEDS ORDERED: Albuterol 2.5 MG/3 ML NEBULIZER IH ONE (10:00)
[2016-07-18] MEDS ORDERED: CeFAZolin Pre 2,000 MG/100 ML 2,000 MG/100 ML BAG IVPB ONE (10:00)
[2016-07-18] MEDS: Ringers Solution, Lactated 1,000 ML IVC SCH ×2 (10:10→15:36)
[2016-07-18] MEDS ORDERED: Albuterol 2.5 MG/3 ML NEBULIZER ONE (10:16)
--- NOTE | 2016-07-18 10:58 | Anesthesia Evaluation PreOp ---
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 History: TIA (no residual) Other Medical History: GERD, Other (obesity) Anesthesia History: No Prior Anesthetic Complications, Past Anesthesia (D&C, CARON /BSO, [place]) : No Alcohol Use: rarely Drug use: none, unknown Medications and Allergies Cetirizine HCl [Zyrtec] 10 mg PO DAILY 07/08/16 [History] Diclofenac Sodium [Voltaren] 1 appl TP QID PRN 07/08/16 [History] Gabapentin [Neurontin] 300 mg PO TID 07/08/16 [History] Ibuprofen [Motrin] 800 mg PO Q8HR PRN 07/08/16 [History] Rabeprazole Sodium [Aciphex] 20 mg PO DAILY 07/08/16 [History] Vitamin B Complex [B Complex] 1 each PO DAILY 07/08/16 [History] Acetaminophen [Tylenol] 650 mg PO Q6HR PRN #0 tablet 07/09/16 [Rx] Aspirin 81 mg PO DAILY #30 tab.chew 07/09/16 [Rx] Rosuvastatin [Crestor] 20 mg PO HS #30 tablet 07/09/16 [Rx] Allergies ketoprofen [From Orudis] Allergy (Verified 07/08/16 12:55) Rash nabumetone [From Relafen] Allergy (Verified 07/08/16 12:55) Rash - Meds/Allergy Pre-op Review Medications Reviewed: Yes Allergies Reviewed: Yes Anesthesia Results - Labs Laboratory Tests 07/08/16 07/08/16 07/08/16 00:46 00:46 04:14 Hgb 12.8 Hct 38.0 Plt Count 177 PT 11.3 INR 1.0 APTT 32.0 Sodium Potassium BUN Creatinine 07/08/16 04:14 Hgb Hct Plt Count PT INR APTT Sodium 138 Potassium 4.1 BUN 15 Creatinine 0.72 - Imaging Additional studies: Stress test negative, EF >65% Anesthesia Exam Selected Entries 07/18/16 10:02 Temperature 98.7 F Pulse Rate 90 Respiratory Rate 18 Blood Pressure 116/81 O2 Sat by Pulse Oximetry 95 Height: 64in Weight: 208lbs NPO (# of Hours): >8 Pain Scale: 0 Pain Scale Used: Numeric (1 - 10) - HEENT Pupil (Motor): EOMI Mallampati: III Teeth: Edentulous Oral Opening: Greater than 3 - WORK DISTRIBUTOR LOC: Oriented WORK DISTRIBUTOR Motor: Normal RUE, Normal LUE, Normal RLE, Normal LLE, Normal Face WORK DISTRIBUTOR Sensory: Normal: RUE, LUE, RLE, LLE, Face - Cardiac Rhythm: Regular Murmur: None - Pulmonary Breath Sounds: bilateral Clear Respiratory Effort: Symmetrical Anesthesia Assess/Plan ASA Score: 3 Modified [place] Scale for Level of Consciousness: Cooperative, oriented, and tranquil Anesthetic Plan: General Monitoring Plan: Standard Monitors, A-Line Recovery Plan: PACU (Discussed risks of GA and a-line. Questions answered and agrees to proceed.)
[2016-07-18] MEDS ORDERED: Protamine Sulfate 50 MG/5 ML VIAL IVP ONE (11:03)
[2016-07-18] MEDS ORDERED: Heparin 1,000 UNITS/500 mL NS 1,000 ML ONE (11:04)
[2016-07-18] MEDS ORDERED: Vancomycin 1,000 MG VIAL ONE (11:04)
[2016-07-18] MEDS ORDERED: Bupivacaine-MPF 0.25% 10 ML VIAL ONE (11:04)
[2016-07-18] MEDS ORDERED: *HR* FentaNYL (PF) 100 MCG/2 ML VIAL ONE (11:16)
[2016-07-18] MEDS ORDERED: *HR* Propofol 200 MG/20 ML VIAL IVP ONE (11:16)
[2016-07-18] MEDS ORDERED: Heparin 1,000 UNITS/500 mL NS 500 ML ONE (11:17)
[2016-07-18] MEDS ORDERED: Acetaminophen IV 1,000 MG/100 ML INFUS..BTL ONE (11:17)
[2016-07-18] MEDS ORDERED: Dexmedetomidine HCl 200 MCG/50 ML MLS IVC ONE (11:17)
[2016-07-18] MEDS ORDERED: Dexamethasone 4 MG/ML VIAL ONE (11:17)
[2016-07-18] MEDS ORDERED: *HR* Rocuronium Bromide 50 MG/5 ML VIAL ONE (11:17)
[2016-07-18] MEDS ORDERED: *HR* Midazolam HCl 2 MG/2 ML VIAL ONE ×2 (11:17→11:44)
[2016-07-18] MEDS ORDERED: Ondansetron 4 MG/2 ML VIAL ONE (11:17)
[2016-07-18] MEDS ORDERED: *HR* Succinylcholine 200 MG/10 ML VIAL IVP ONE (11:17)
[2016-07-18] MEDS ORDERED: *HR* Heparin 5,000 UNIT/ML VIAL ONE ×2 (11:17→13:29)
[2016-07-18] MEDS ORDERED: Lidocaine -MPF 4% 5 ML AMPUL ONE (11:17)
--- NOTE | 2016-07-18 11:17 | History & Physical Report ---
Date of Encounter: 07/18/16 Time of Encounter: 11:10 24 Hour HP Update - Instructions Instructions: If the History and Physical is less than 30 days old and was completed prior to A.M. admission and or procedure and has NOT been updated on calendar day of procedure please complete this update prior to performing procedure. - Update Patient reports changes in Medical Condition: No Changes in examination, assessment, or condition: No Changes in Medication: No Preop tests/diagnostics Reviewed: Yes Surgery Remains Indicated: Yes Consent for Planned Operative Procedure(s) Verified: Yes - Pre-Operative Checklist Preoperative Checklist Indicated: Yes Prophylactic Antibiotic Ordered: Yes (vancomycin due to MRSA risk) Home Medications Include Beta Chasidy: No Beta Chasidy Taken Today (Day of Surgery): No Beta Chasidy Taken Yesterday (Day Prior to Surgery): No Is VTE Prophylaxis Indicated?: Yes
[2016-07-18] MEDS ORDERED: Lidocaine -MPF 2% 2 ML VIAL ONE (11:43)
[2016-07-18] MEDS ORDERED: Ketamine *HR* 500 MG/10 ML MDV ONE (12:04)
[2016-07-18] MEDS ORDERED: Esmolol 100 MG/10 ML VIAL IVP ONE (12:12)
[2016-07-18] MEDS ORDERED: *HR* Promethazine 25 MG/ML VIAL IVP PRN (12:28)
[2016-07-18] MEDS ORDERED: *HR* Labetalol 100 MG/20 ML MDV IVP PRN (12:28)
[2016-07-18] MEDS ORDERED: *HR* HYDROmorphone (PF) 1 MG/ML SYRINGE IVP PRN (12:28)
--- NOTE | 2016-07-18 12:28 | Anesthesia Procedures ---
Date of Encounter: 07/18/16 Time of Encounter: 12:00 Procedures: Anesthesia - Arterial Line Consent obtained: written consent Time out performed: Yes Sedation: Versed (mg): 4 Supplemental Oxygen via Nasal Cannula (L/min): 15 (FM) Local Anesthetic: Lidocaine 1% Amount of Anesthetic used (mls): 1 Size (Gauge): 20 Length (inches): 1 3/4 Technique Used: sterile prep, guide wire technique, direct puncture technique Post-Procedure: line taped into place, dry sterile dressing placed Patient tolerated procedure: well Complications: none Site: Radial R Vitals: see anesthetic record
[2016-07-18] MEDS ORDERED: Neostigmine Methylsulfate 3 MG/3 ML SYRINGE ONE (14:25)
[2016-07-18] MEDS ORDERED: Ketorolac 30 MG/ML VIAL ONE (14:27)
--- NOTE | 2016-07-18 15:07 | Operative Note ---
Date of procedure: 07/18/16 Pre-op diagnosis: Symptomatic right internal carotid artery 60-79% stenosis Post-op diagnosis: same Procedure: Right carotid endarterectomy with hemashield patch angioplasty. Complications: None Anesthesia: LIBRADOA Surgeon: Eren Shell Estimated blood loss (cc): 100 Specimen: Right carotid plaque Condition: stable Disposition: PACU Procedure in Detail: Indications: The patient is a 56 year old female who was found to have a symptomatic 60-79% right internal carotid artery stenosis. She previously had a right hemispheric transient iscemic attack and a carotid duplex was orded. She was found to have signifcant stenosis and a right carotid endarterectomy was recommended. Procedure: The patient was identified in the preoperative area. The risks, benefits, and alternatives of the procedure were discussed and all questions were answered. The patient was then taken to the operating room and placed in supine position on the operating table. After induction of general endotracheal anesthesia, the patient was cleaned and draped in normal sterile fashion. A longitudinal incision was made anterior to the right sternocleidomastoid muscle. Hemostasis was obtained via electrocautery. Through a process of blunt , sharp, and electrocautery dissection, the platysma was traversed. The jugular vein was identified. The facial vein was clamped, divided, tied off with a 2-0 silk suture ligature. The jugular vein was retracted, exposing the carotid bifurcation. Patient received 2000 units of heparin intravenously at this time. Proximal dissection of the common and external carotid arteries were performed circumferentially. Dissection of the internal carotid was performed circumferentially. Vessels loops were passed around the internal and external carotid and an umbilical tape was passed from the common carotid artery. The patient received additional 3000 units of heparin intravenously. Additional heparin was given throughout the case to maintain adequate anticoagulation. After waiting adequate time for the heparin to circulate, the common, internal and external carotid arteries were occluded and a longitudinal arteriotomy was made into the common carotid artery with a #11 blade. The arteriotomy was then extended into the internal carotid beyond the plaque. Vigorous pulsatile retrograde flow was noted from the internal carotid artery upon release of the loop; therefore, no shunt was placed. A dental [place] was used to perform a standard endarterectomy. Proximal and distal endpoints were inspected and no elevated flaps were noted. A Hemashield patch was cut to fit the defect and sutured in place with running 6 -0 Prolene. Prior to completing the closure, each vessel was flushed and then reoccluded. Heparinized saline was infused into the lumen. The patch was completed. Flow was restored in the external carotid artery, followed the common carotid artery, lastly the internal carotid artery was opened. A low resistance arterialized signal was present within the internal carotid artery beyond the patch. Thrombin and Gelfoam were used to aid in hemostasis. Meticulous hemostasis was obtained throughout the wound with electrocautery. Platelet rich and platelet poor plasma were infused into the wounds. The sternocleidomastoid was reapproximated with interrupted 3-0 Vicryl. Platelet rich and platelet poor plasma were infused into the wound. A TLS drain was brought through a separate stab incision and sutured in place with 0 silk suture. The platysma was reapproximated with running 3-0 Vicryl. Local anesthetic was infused in the skin. A 3-0 Monocryl was used to reapproximate the skin. Sterile dressing was applied. The patient was extubated, taken to the recovery room in stable condition.
--- NOTE | 2016-07-18 16:22 | Anesthesia Evaluation Post Op ---
Date of Encounter: 07/18/16 Time of Encounter: 16:21 - Vital Signs Vital Signs: Vital Signs/O2 Sat, Most Current Temp Pulse Resp BP Pulse Ox 97.9 F 71 16 88/52 93 07/18/16 16:05 07/18/16 16:05 07/18/16 16:05 07/18/16 16:05 07/18/16 16:05 - Lungs Lungs: Clear Ascult./Percussion - Airway Airway: Non-obstructed - Cardiovascular Regular Rate - Mental Status Mental Status: Alert & Oriented, Answers Appropriately - Pain Pain Scale: 2 - Nausea Vomiting Nausea Vomiting: Not Present - Hydration Hydration: Tolerates oral liquids, Boykin catheter - Discharge PostOp Status: Transfer Patient to floor
[2016-07-18] MEDS ORDERED: *HR* Labetalol 20 MG/4 ML SYRINGE IVP PRN (16:45)
[2016-07-18] MEDS ORDERED: *HR* Morphine 2 MG/ML SYRINGE IVP PRN (16:45)
[2016-07-18] MEDS ORDERED: Naloxone 0.4 MG/ML INJ IVP PRN (16:45)
[2016-07-18] MEDS ORDERED: Acetaminophen 325 MG TABLET PO PRN (16:45)
[2016-07-18] MEDS ORDERED: Ondansetron 4 MG/2 ML VIAL IVP PRN (16:45)
[2016-07-18] MEDS ORDERED: *HR* OxyCODONE Immed Rel 5 MG TABLET PO PRN (16:45)
[2016-07-18] MEDS: Gabapentin 300 MG CAPSULE PO SCH ×2 (18:17→21:47)
[2016-07-18] MEDS: *HR* Metoprolol 5 MG/5 ML VIAL IVP SCH ×2 (18:17→23:31)
[2016-07-18] MEDS: *HR* HYDROcodone/Acet 5/325 mg TABLET PO PRN (18:37)
[2016-07-18] MEDS: ceFAZolin 2,000 MG in D5% in Water 100 ML IVPB SCH (20:20)
[2016-07-19] MEDS ORDERED: Vancomycin 1,500 MG in D5% in Water 250 ML IVPB ONE
[2016-07-19] MEDS: ceFAZolin 2,000 MG in D5% in Water 100 ML IVPB SCH (04:01)
[2016-07-19] MEDS: *HR* Metoprolol 5 MG/5 ML VIAL IVP SCH (05:37)
[2016-07-19] MEDS ORDERED: *HR* Heparin 5,000 UNIT/ML VIAL SQ SCH ×2 (06:00)
--- NOTE | 2016-07-19 07:11 | Discharge Summary ---
Date of Encounter: 07/19/16 Time of Encounter: 07:35 - Discharge Diagnosis (1) Carotid stenosis, bilateral Priority: Primary Status: Chronic Comments: The patient is postoperative day #1 after a right carotid endarterectomy. She is feeling and her strength and sesory exam is intact. She has right tongue deviation which she reports is improving since yesterday. Her incision is healing without hematoma. She will be discharged today in stable condition without complication. She will continue with daily Aspirin. (2) Obesity (BMI 30-39.9) Priority: Secondary Status: Chronic (3) Mixed hyperlipidemia Priority: Secondary Status: Chronic Comments: The patient was counseled regarding atherosclerotic risk factor reduction. (4) Essential hypertension Priority: Secondary Status: Chronic (5) Tobacco abuse Priority: Secondary Status: Chronic - Discharge Medications Prescriptions: HYDROcodone/Acet 5/325 mg [Wayne 5-325 mg] 1 tab PO Q4H PRN #25 tablet PRN Reason: postoperative pain Home Medications: Cetirizine HCl [Zyrtec] 10 mg PO DAILY 07/08/16 [History] Diclofenac Sodium [Voltaren] 1 appl TP QID PRN 07/08/16 [History] Gabapentin [Neurontin] 300 mg PO TID 07/08/16 [History] Ibuprofen [Motrin] 800 mg PO Q8HR PRN 07/08/16 [History] Rabeprazole Sodium [Aciphex] 20 mg PO DAILY 07/08/16 [History] Acetaminophen [Tylenol] 650 mg PO Q6HR PRN #0 tablet 07/09/16 [Rx] Aspirin 81 mg PO DAILY #30 tab.chew 07/09/16 [Rx] Rosuvastatin [Crestor] 20 mg PO HS #30 tablet 07/09/16 [Rx] Tizanidine HCl 4 mg PO Q6H PRN 07/18/16 [History] HYDROcodone/Acet 5/325 mg [Wayne 5-325 mg] 1 tab PO Q4H PRN #25 tablet 07/19/16 [Rx] Allergies/Adverse Reactions: Allergies ketoprofen [From Orudis] Allergy (Verified 07/18/16 11:07) Rash nabumetone [From Relafen] Allergy (Verified 07/18/16 11:07) Rash Date of admission: 07/18/16 17:36 Primary care physician: Saroj Tello Jr, MD Procedure(s) Performed: Right carotid endarterectomy Discharging clinician: Eren East Anticipated date of discharge: 07/19/16 - Patient Status Disposition: Home, Self-Care Condition: Good Functional capacity at discharge: independent ambulation Overall status at discharge: patient is back to baseline - Discharge Instructions Instructions: Hydrocodone/Acetaminophen (By mouth), How to Stop Smoking (DC), Heart Healthy Diet (DC), Cigarette Smoking and Your Health (GEN), Carotid Endarterectomy (DC), Peripheral Vascular Disorders (DC) Follow Up With: Saroj Tello Jr, MD [Primary Care Provider] - Eren East MD [Partnered Physician] - 07/30/16 9:20 am Carie Dawn CNP [Advanced Practice Nurse] - 07/25/16 1:10 pm Additional Instructions: MAY REMOVE BANDAGE AND SHOWER ON 07/20/16. WASH WOUND GENTLY AND PAT TO DRY. NO DRIVING FOR [address] EAST AT [phone] WITH QUESTIONS OR CONCERNS. - Diet and Activity Activity: increase activity as tolerated Diet: low fat, low cholesterol - Hospital Course Hospital course: Ms. Meraz is a 56 year old female with a history of symptomatic right internal carotid artery stenosis. She was admitted and underwent a right carotid endarterectomy. She tolerated the procedure well. She was discharged to home on postoperative day #1 in stable condition. Time spent discussing smoking cessation with patient: 3 to 10 minutes - Time Spent with Patient Total time spent providing and/or coordinating discharge services: Exam Vital Signs, Last 4 Hours Temp Pulse Resp BP Pulse Ox 07/19/16 05:00 60 97/52 07/19/16 04:36 98.0 F 17 96/57 98 07/19/16 04:00 61 96/57 General: Present: Conversant, No Apparent Distress HEENT: Present: Trachea midline, Pupils equal, Other (Right tongue deviation improved since yesterday) Neck: Absent: JVD, Tracheal deviation Cardiac: Present: Reg Rate and Rhythm, Normal S1 and S2 Lungs: Present: Normal Breath Sounds, No Wheeze, Rales, Rhonchi Neuro: Present: Alert and responsive, Motor nerves grossly intact, Sensory nerves grossly intact Abdomen: Present: Soft, Non-tender. Absent: Masses Vascular: Absent: Normal capillary refill, Cyanosis, Edema Skin: Present: No rashes noted on visualized skin Musculoskeletal: Absent: No Chest Wall Tenderness - VTE Documentation of Mechanical Device: Intermittent pneumatic compression device
[2016-07-19] MEDS ORDERED: Aspirin 81 MG TAB.CHEW PO SCH (09:00)
[2016-07-19] MEDS ORDERED: Loratadine 10 MG TABLET PO SCH (09:00)
[2016-07-19 09:02] VITALS: BP 112/65
[2016-07-19] MEDS: *HR* HYDROcodone/Acet 5/325 mg TABLET PO PRN (09:02)
[2016-07-19] MEDS: Gabapentin 300 MG CAPSULE PO SCH (09:03)
== END 2016-07-19 10:51 | disposition home or self-care (01) | DRG 39 ==
LOC: SAMDAY 09:31 → 2NNU 17:36
PROVIDERS: ADMIT Surgery; ATTEND Surgery

== ENCOUNTER 2018-08-10 10:05 | Observation (INO) ==
[2018-08-10] MEDS ORDERED: Aspirin 81 MG TAB.CHEW PO ONE (10:27)
--- NOTE | 2018-08-10 10:32 | Emergency Department Note ---
Disposition Clinical Impression: Cerebrovascular accident Qualifiers: CVA mechanism: unspecified Qualified Code(s): I63.9 - Cerebral infarction, unspecified Disposition: Admitted As Inpatient Referrals: Saroj Tello Jr, MD [Primary Care Provider] - General Adult HPI - General Chief complaint: ED Neuro Symptoms/Deficit Stated complaint: Stroke like symptoms Time Seen by Provider: 08/10/18 10:18 Source: patient, EMS Limitations: no limitations Nursing Notes Reviewed: Yes Vital Signs Reviewed: Yes - History of Present Illness HPI Narrative: Attestation note: Patient was seen with the emergency medicine resident/nurse practitioner/physician coding assistant/transitional resident/medical student: Dr. Claudio Blake I have personally performed a face to face evaluation on this patient. I have reviewed and agree with history and physical examination patient management and disposition. Briefly the salient points of the case are as follows: 58-year-old female by EMS for stroke like symptoms. 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 History of TIAs in the past last one was in June she had a carotid Doppler which showed higher-level occlusion on the right and there is mention of carotid endarterectomy done on the left liver was blockage there. Patient says she is feeling a little bit better since EMS has arrived. She is on aspirin. Denies chest pain or shortness of breath. No medication changes or recent trauma or travel. Her NIH is 2. We are not calling a stroke alert. Patient will get noncontrast CT scan of the head screening labs. EKG shows no acute ischemic changes. Admission anticipated. Disposition pending Pain Scale: 0 - Related Data Home Medications Medication Instructions Recorded Confirmed Cetirizine HCl [Zyrtec] 10 mg PO DAILY 07/08/16 03/03/18 Diclofenac Sodium [Voltaren] 1 appl TP QID PRN 07/08/16 03/03/18 Gabapentin [Neurontin] 300 mg PO TID 07/08/16 03/03/18 Ibuprofen [Motrin] 800 mg PO Q8HR PRN 07/08/16 03/03/18 Rabeprazole Sodium [Aciphex] 20 mg PO DAILY 07/08/16 03/03/18 Tizanidine HCl 4 mg PO Q6H PRN 07/18/16 03/03/18 Previous Rx's Medication Instructions Recorded Acetaminophen [Tylenol] 650 mg PO Q6HR PRN #0 tablet 07/09/16 Aspirin 81 mg PO DAILY #30 tab.chew 07/09/16 Rosuvastatin [Crestor] 20 mg PO HS #30 tablet 07/09/16 Azithromycin [Azithromycin 6-Tab 250 mg PO PER PKG DI #6 tab 01/22/18 Pack] Allergies Allergy/AdvReac Type Severity Reaction Status Date / Time ketoprofen [From Orudis] Allergy Rash Verified 01/22/18 17:42 nabumetone [From Relafen] Allergy Rash Verified 01/22/18 17:42 Past Medical History - Past Medical History Medical history: Reports: arthritis, fibromyalgia, hyperlipidemia, migraine, TIA, other Surgical history: Reports: carotid endarterectomy, cholecystectomy, hysterectomy, other Psychiatric history: Reports: anxiety, PTSD, 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 - Social History Smoking Status: Current every day smoker Smokeless Tobacco Status: No Alcohol use: Reports: rarely Drug use: Reports: none Physical Exam - General Limitations: no limitations General appearance: alert, in no apparent distress Course Vital Signs Temperature 97.9 F 08/10/18 10:09 Pulse Rate 87 08/10/18 10:09 Respiratory Rate 18 08/10/18 10:09 Blood Pressure 132/73 08/10/18 10:09 O2 Sat by Pulse Oximetry 96 08/10/18 10:09 Temperature 97.9 F 08/10/18 10:09 Pulse Rate 87 08/10/18 10:09 Respiratory Rate 18 08/10/18 10:09 Blood Pressure 132/73 08/10/18 10:09 O2 Sat by Pulse Oximetry 96 08/10/18 10:09 Oxygen Delivery Oxygen Delivery Room Air
--- NOTE | 2018-08-10 10:44 | Emergency Department Note ---
Disposition Clinical Impression: Cerebrovascular accident Qualifiers: CVA mechanism: unspecified Qualified Code(s): I63.9 - Cerebral infarction, unspecified Disposition: Admitted As Inpatient Condition: Fair Referrals: Saroj Tello Jr, MD [Partnered Physician] - Forms: ED Satisfaction Letter Time of Disposition: 11:58 Neuro HPI - General Chief Complaint: ED Neuro Symptoms/Deficit Stated Complaint: Stroke like symptoms Time Seen by Provider: 08/10/18 10:18 Source: patient, EMS Mode of arrival: ambulatory Limitations: no limitations Nursing Notes Reviewed: Yes Vital Signs Reviewed: Yes - History of Present Illness HPI Narrative: 58-year-old female presents to the emergency department with strokelike symptoms. She came via EMS they got a blood sugar 99. They said that she first felt weakness on her right side like she was slurring her speech and had a hard time talking. She feels like mostly symptoms have resolved except for the speech says she feels like she is having a hard time getting words out but is able to have a conversation. She does have history of TIA did have an endarterectomy and her previous TIA admission where she had nearly complete blockage of the right carotid and had blockage also of the left but not needing surgery at this time. Patient otherwise not having any complaints at this time. Says she has no pain. Never did syncopized but has never lost consciousness. - Related Data Home Medications: Home Medications Medication Instructions Recorded Confirmed Cetirizine HCl [Zyrtec] 10 mg PO DAILY 07/08/16 03/03/18 Diclofenac Sodium [Voltaren] 1 appl TP QID PRN 07/08/16 03/03/18 Gabapentin [Neurontin] 300 mg PO TID 07/08/16 03/03/18 Ibuprofen [Motrin] 800 mg PO Q8HR PRN 07/08/16 03/03/18 Rabeprazole Sodium [Aciphex] 20 mg PO DAILY 07/08/16 03/03/18 Tizanidine HCl 4 mg PO Q6H PRN 07/18/16 03/03/18 Previous Rx's Medication Instructions Recorded Acetaminophen [Tylenol] 650 mg PO Q6HR PRN #0 tablet 07/09/16 Aspirin 81 mg PO DAILY #30 tab.chew 07/09/16 Rosuvastatin [Crestor] 20 mg PO HS #30 tablet 07/09/16 Azithromycin [Azithromycin 6-Tab 250 mg PO PER PKG DI #6 tab 01/22/18 Pack] Allergies/Adverse Reactions: Allergies Allergy/AdvReac Type Severity Reaction Status Date / Time ketoprofen [From Orudis] Allergy Rash Verified 01/22/18 17:42 nabumetone [From Relafen] Allergy Rash Verified 01/22/18 17:42 All systems ED: reviewed and negative except as stated. Review of Systems: As Per HPI Past Medical History - Past Medical History Attestation: Yes The following information was validated with the patient. 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 - Social History Smoking Status: Current every day smoker Smokeless Tobacco Status: No Alcohol use: Reports: rarely Drug use: Reports: none Physical Exam - General Limitations: no limitations General appearance: alert, in no apparent distress - Head Head exam: atraumatic, normocephalic, normal inspection - Eye Eye exam: Present: normal appearance, PERRL, EOMI - ENT ENT exam: normal exam, normal oropharynx, mucous membranes moist - Neck Neck exam: Present: normal inspection, full ROM, trachea midline - Chest Chest inspection: Present: normal inspection, symmetric chest wall rise - Respiratory Respiratory exam: Present: normal lung sounds bilaterally - Cardiovascular Cardiovascular exam: Present: regular rate, normal rhythm, normal heart sounds - Abdominal Exam Abdominal exam: Present: soft, Non-Tender, normal bowel sounds. Absent: tenderness, distention, guarding, rebound, rigidity - Extremities Exam Extremities exam: Present: normal inspection, full ROM. Absent: tenderness, pedal edema - Back Exam Back exam: Present: normal inspection, full ROM. Absent: tenderness, CVA tenderness (R), CVA tenderness (L) - Neurological Exam Neurological exam: Present: alert, oriented X3, CN II-XII intact - Expanded Neurological Exam Patient oriented to: Present: person, place, time Speech: Present: fluid speech Cranial nerves: EOM function (II, III, IV, ): Normal, facial sensation (V): Normal, facial palsy (VII): Normal, spinal accessory function (XI): Normal, tongue deviation (XII): Normal Cerebellar function: finger to nose: Normal, heel to benson: Normal Motor strength - LUE: 4/5 Motor strength - RUE: 4/5 Motor strength - LLE: 4/5 Motor strength - RLE: 4/5 Upper motor neuron exam: ray neglect: Absent bilaterally, pronator drift: Absent bilaterally, sensory extinction: Absent bilaterally Sensory exam upper extremity: light touch: Normal, pin prick: Normal Sensory exam lower extremity: light touch: Normal, pin prick: Abnormal Left Coma Scale Eye Opening: Spontaneous Coma Scale Motor Response: Obeys Commands Coma Scale Verbal Response: Oriented Coma Scale Total: 15 - Skin Skin exam: Present: warm, dry, intact, normal color Course Course Narrative: Stroke alert was not called on the patient due to symptoms resolving. But we will get CT of the head as well as basic labs including CBC BMP troponin EKG. Patient care this plan. Patient most likely will be admitted for further evaluation of her strokelike symptoms. Vital Signs Temperature 97.9 F 08/10/18 10:09 Pulse Rate 87 08/10/18 10:09 Respiratory Rate 18 08/10/18 10:09 Blood Pressure 132/73 08/10/18 10:09 O2 Sat by Pulse Oximetry 96 08/10/18 10:09 Temperature 97.9 F 08/10/18 10:09 Pulse Rate 72 08/10/18 11:09 Respiratory Rate 18 08/10/18 11:09 Blood Pressure 115/75 08/10/18 11:09 O2 Sat by Pulse Oximetry 94 08/10/18 11:09 Oxygen Delivery Oxygen Delivery Room Air Neuro Symptoms/Deficit - MDM Narrative Medical decision making narrative: 58-year-old male presented to the emergency department with strokelike symptoms. All of her symptoms completely resolved when she arrived. Stroke alert was not called. She had a NIH of to due to subjective sensation loss on the left side patient says the symptoms have nearly all resolved at this time. This states feels similar to last time she needed an endarterectomy of her right carotid. She having neck pain. Patient otherwise having no other, was this time CT came back normal. Labs BACK within normal limits. Patient needs to be admitted for further MRI treatment and possible carotid duplex scanning. I spoke with Dr. Starks who agreed to admit the patient to their service. Patient is admitted in stable condition. - Medical Records Medical records reviewed: Yes I reviewed the patient's medical records. - Lab Data Lab results reviewed: Yes I reviewed the patient's lab results. Result diagrams: 08/10/18 10:38 08/10/18 10:38 Lab Results 08/10/18 08/10/18 Range/Units 10:38 10:38 WBC 6.5 (4.3-11.1) K/mcL RBC 3.97 (3.82-4.97) M/mcL Hgb 12.9 (11.5-15.4) g/dL Hct 38.8 (35.3-44.9) % MCV 97.7 (83.0-100.0) fL MCH 32.5 (28.0-33.3) pg MCHC 33.2 (31.6-35.5) g/dL RDW 12.5 (11.5-14.5) % Plt Count 191 (140-400) K/mcL MPV 10.5 (9.4-12.4) fL Immature Gran % 0.3 (0-4) % Seg Neutrophils % 56.3 % Lymphocytes % 31.2 % Monocytes % 7.1 % Eosinophils % 4.0 % Basophils % 1.1 % Neutrophils # 3.7 (1.6-8.9) K/mcL Lymphocytes # 2.0 (0.6-4.6) K/mcL Monocytes # 0.5 (0.0-1.3) K/mcL Eosinophils # 0.3 (0.0-0.6) K/mcL Basophils # 0.1 (0.0-0.2) K/mcL Sodium 136 (136-145) mEq/L Potassium 3.8 (3.5-5.1) mEq/L Chloride 103 (98-107) mEq/L Carbon Dioxide 23 (23-29) mEq/L BUN 14 (8-23) mg/dL Creatinine 0.73 (0.60-1.20) mg/dL Est GFR ( Amer) > 60 (> 60) Est GFR (Non-Af Amer) > 60 (> 60) BUN/Creatinine Ratio 19 (6-26) Glucose 134 H (70-105) mg/dL Calculated Osmolality 284 (280-300) Calcium 9.2 (8.6-10.3) mg/dL Troponin I < 0.03 (< 0.04) ng/mL - Radiology Data Radiology results reviewed: Yes I reviewed the patient's radiology results. - EKG Data EKG attestation: Yes I reviewed and interpreted this EKG. EKG results narrative: EKG done at 1044 review myself and attending shows sinus rhythm at a rate of 69, CO 148, QRS 88, QTC 451. There is no acute ST changes no acute T-wave changes no other signs of ischemia. No signs of hypertrophy, heart strain, heart block. No WPW/Brugada/HOCM. EKG is unchanged based on old EKG done 01/22/18 NIH Stroke Scale - Level of Consciousness LOC: Alert - LOC Questions LOC Questions: Answers both correctly - LOC Commands LOC Commands: Performs both correctly - Best Gaze Best Gaze: Normal - Visual Visual: No visual loss - Facial Palsy Facial Palsy: Normal - Motor Arms Motor Arm-Left: No drift for 10 seconds Motor Arm-Right: No drift for 10 seconds - Motor Legs Motor Leg-Left: No drift for 5 seconds Motor Leg-Right: No drift for 5 seconds - Limb Ataxia Limb Ataxia: Absent of affected limb too weak to perform exam - Sensory Sensory: Mild to moderate loss, "not as sharp" - Best Language Best Language: No aphasia - Dysarthria Dysarthria: Mild, slurs some words - Extinction and Inattention Extinction and Inattention: Normal - NIHSS Total Score NIHSS Total Score: 2 TPA Checklist - LKW: 3-4.5 hrs Add. Warnings/Precautions Patient/family understanding: The patient/family members have been counseled and understood the risk, benefit, and alternatives of treatment.
[2018-08-10 10:48] LABS: Basophils # 0.1 K/mcL (0.0-0.2); Basophils % 1.1 %; Eosinophils # 0.3 K/mcL (0.0-0.6); Hematocrit 38.8 % (35.3-44.9); Hemoglobin 12.9 g/dL (11.5-15.4); Immature Granulocytes % 0.3 % (0-4); Lymphocytes % 31.2 %; Mean Corpuscular HGB Conc 33.2 g/dL (31.6-35.5); Mean Corpuscular Hemoglobin 32.5 pg (28.0-33.3); Mean Corpuscular Volume 97.7 fL (83.0-100.0); Mean Platelet Volume 10.5 fL (9.4-12.4); Monocytes # 0.5 K/mcL (0.0-1.3); Monocytes % 7.1 %; Neutrophils # 3.7 K/mcL (1.6-8.9); Platelet Count 191 K/mcL (140-400); Red Blood Count 3.97 M/mcL (3.82-4.97); Red Cell Distribution Width 12.5 % (11.5-14.5); Segmented Neutrophils % 56.3 %
[2018-08-10 11:08] LABS: BUN/Creatinine Ratio 19 (6-26); Blood Urea Nitrogen 14 mg/dL (8-23); Calcium 9.2 mg/dL (8.6-10.3); Carbon Dioxide 23 mEq/L (23-29); Chloride 103 mEq/L (98-107); Glucose 134 mg/dL (70-105); Osmolality,Calculated 284 (280-300); Potassium 3.8 mEq/L (3.5-5.1); Sodium 136 mEq/L (136-145); eGFR For Non-African Americans > 60 (> 60)
[2018-08-10 11:31] LABS: Troponin I < 0.03 ng/mL (< 0.04)
[2018-08-10] MEDS ORDERED: OXYCODONE Oral CONC 10 MG/0.5 ML ORAL.SYG SL PRN ×2 (13:49)
[2018-08-10] MEDS ORDERED: Ondansetron 4 MG/2 ML VIAL IVP PRN (13:49)
[2018-08-10] MEDS ORDERED: Naloxone 0.4 MG/ML INJ IVP PRN ×2 (13:49)
--- NOTE | 2018-08-10 13:49 | Internal Med History&Physical ---
Date of Encounter: 08/10/18 Time of Encounter: 18:00 Internal Medicine - H&P: HPI Chief complaint: slurred speech History of present illness: 58-year-old female with past medical history of fibromyalgia hyperlipidemia, post arthritis and previous TIA who presents to the emergency department with a brief episode of slurred speech, that now is completely resolved. The patient has history of prior TIA status post endarterectomy for nearly complete blockage of the right carotid and had blockage also of the left but not needing surgery at this time. The patient was admitted for further evaluation and management of TIA Past Med Surg Social Fam HX - Past Medical History Medical history: arthritis, fibromyalgia, hyperlipidemia, migraine, TIA, other Additional medical history: arrythmias Psychiatric history: anxiety, PTSD, other - Past Surgical History Surgical History: carotid endarterectomy, cholecystectomy, hysterectomy, other Additional surgical history: polyps removed from colon, 3 c-sections, right CEA - Social History Smoking Status: Current every day smoker Smokeless Tobacco Status: No Alcohol use: rarely Drug use: none - Family History Father Hx Family Cardiac Disorders: Yes (heart attacks) Hx Family Cancer: Yes (prostate) Internal Medicine - H&P: Meds Cetirizine HCl [Zyrtec] 10 mg PO DAILY 07/08/16 [History] Gabapentin [Neurontin] 300 mg PO TID 07/08/16 [History] Ibuprofen [Motrin] 800 mg PO Q8HR PRN 07/08/16 [History] Rabeprazole Sodium [Aciphex] 20 mg PO DAILY 07/08/16 [History] Aspirin 81 mg PO DAILY #30 tab.chew 07/09/16 [Rx] Tizanidine HCl 4 mg PO TID PRN 07/18/16 [History] Citalopram Hydrobromide [Citalopram HBr] 40 mg PO DAILY 08/10/18 [History] Atorvastatin [Lipitor] 40 mg PO HS 30 Days #30 tablet 08/12/18 [Rx] Allergy/AdvReac Type Severity Reaction Status Date / Time ketoprofen [From Orudis] Allergy Rash Verified 08/10/18 16:19 nabumetone [From Relafen] Allergy Rash Verified 08/10/18 16:19 All Systems PM: A 10-system review of systems was performed and is negative for pertinent findings except as documented above in the HPI. - Constitutional Constitutional: no chills, no fever(s), no night sweats - EENT Eyes: no change in vision, no discharge, no pain, no photophobia Ears: no ear discharge, no ear pain, no tinnitus Nose, mouth and throat: no dysphagia, no nasal discharge, no neck pain, no sore throat - Cardiovascular Cardiovascular ROS IM: no chest pain, no diaphoresis, no dyspnea, no lightheadedness, no palpitations, no syncope - Respiratory Respiratory: no cough, no dyspnea, no wheezing, no excessive phlegm production - Gastrointestinal Gastrointestinal: no abdominal pain, no diarrhea, no hematemesis, no hematochezia, no melena, no nausea, no vomiting - Genitourinary Genitourinary: no change in urinary stream, no dysuria, no flank pain, no hematuria - Musculoskeletal Musculoskeletal ROS IM: no numbness, no tingling - Integumentary Integumentary IM: no rash, no unusual bruising - Neurological Neurological ROS: abnormal speech, confusion, weakness, no convulsions, no focal weakness, no numbness, no tingling, no tremor(s) - Hematologic/Lymphatic Hematologic/Lymphatic: no easy bruising - Constitutional Vitals: Temp Pulse Resp BP Pulse Ox 97.9 F 71 18 151/82 94 08/10/18 10:09 08/10/18 11:58 08/10/18 13:39 08/10/18 13:39 08/10/18 11:58 Exam: General: In no acute distress. Obese Respiratory exam: CTAB. no accessory muscle use, rales, rhonchi, wheezes Cardiovascular exam: RRR, +S1, +S2. no murmur, gallop, rubs. GI/Abdominal exam: Non-tender, Non-distended, normal bowel sounds, soft, no peritoneal signs. Extremities exam: no pedal edema, pulses palpable in b/l lower extremities. no calf tenderness Neurological exam: CN II-XII intact, mildly deviated tongue to Lt, AO X3, no focal deficits, slurry speech, weakness or numbness. Skin exam: Rt neck scar from endarterectomy Internal Med - H&P Results - Labs CBC & Chem 7: 08/11/18 04:15 08/11/18 04:15 Labs: Short CBC 08/10/18 Range/Units 10:38 WBC 6.5 (4.3-11.1) K/mcL Hgb 12.9 (11.5-15.4) g/dL Hct 38.8 (35.3-44.9) % Plt Count 191 (140-400) K/mcL Neutrophils # 3.7 (1.6-8.9) K/mcL BMP 08/10/18 10:38 Sodium 136 Potassium 3.8 Chloride 103 Carbon Dioxide 23 BUN 14 Creatinine 0.73 Glucose 134 H Calcium 9.2 Cardiac Enzymes 08/10/18 Range/Units 10:38 Troponin I < 0.03 (< 0.04) ng/mL - Impressions ITS Impressions Head CT 08/10/18 10:25 IMPRESSION: 1. No acute intracranial abnormality. D/ / Sven Eckert MD / Sven Eckert MD Interpreting Provider: Sven Eckert MD Chest X-Ray 08/10/18 10:26 IMPRESSION: 1. No acute abnormality. D/ / Sven cEkert MD / Sven Eckert MD Interpreting Provider: Sven Eckert MD - Assessment and Plan (1) Transient ischemic attack (TIA) Status: Acute Assessment and plan: *TIA -Swallow evaluation at bedside- PLAN: -CPP x 2 q 8 hr -EKG now and in AM -ASA -UA -Tylenol 650 mg PO q 4-6 hr PRN headache Qualifiers: Transient cerebral ischemia type: carotid artery syndrome (hemispheric) Qualified Code(s): G45.1 - Carotid artery syndrome (hemispheric) (2) Obesity (BMI 30-39.9) Status: Chronic (3) Mixed hyperlipidemia Status: Chronic Assessment and plan: We will continue home statin and obtain fasting lipid profile in a.m. (4) Essential hypertension Status: Chronic Assessment and plan: We will continue home medication and monitor blood pressure while inpatient and adjust regimen if necessity (5) DVT prophylaxis Status: Acute Assessment and plan: We will place a SCDs - Time Spent With Patient Total time spent is greater than 50% in coordination of care (as documented) at patient's floor/unit and/or counseling patient:
[2018-08-10] MEDS ORDERED: tiZANidine 4 MG TABLET PO ONE (15:52)
[2018-08-10] MEDS: 0.9 % Sodium Chloride 1,000 ML IVC SCH (16:15)
[2018-08-10] MEDS: Aspirin 81 MG TAB.CHEW PO SCH (17:44)
[2018-08-10] MEDS: Gabapentin 300 MG CAPSULE PO SCH ×2 (17:45→20:18)
[2018-08-10] MEDS: Loratadine 10 MG TABLET PO SCH (17:45)
[2018-08-10] MEDS: Ibuprofen 800 MG TABLET PO PRN (17:50)
[2018-08-11] MEDS: tiZANidine 4 MG TABLET PO PRN ×2 (00:55→16:48)
[2018-08-11] MEDS: 0.9 % Sodium Chloride 1,000 ML IVC SCH (01:00)
[2018-08-11 05:02] LABS: Basophils # 0.1 K/mcL (0.0-0.2); Basophils % 1.5 %; Eosinophils # 0.3 K/mcL (0.0-0.6); Eosinophils % 5.5 %; Hematocrit 35.1 % (35.3-44.9); Hemoglobin 11.5 g/dL (11.5-15.4); Immature Granulocytes % 0.2 % (0-4); Lymphocytes % 51.4 %; Mean Corpuscular HGB Conc 32.8 g/dL (31.6-35.5); Mean Corpuscular Hemoglobin 31.9 pg (28.0-33.3); Mean Corpuscular Volume 97.2 fL (83.0-100.0); Mean Platelet Volume 10.4 fL (9.4-12.4); Monocytes # 0.4 K/mcL (0.0-1.3); Monocytes % 6.7 %; Platelet Count 176 K/mcL (140-400); Red Blood Count 3.61 M/mcL (3.82-4.97); Red Cell Distribution Width 12.4 % (11.5-14.5); Segmented Neutrophils % 34.7 %
[2018-08-11 05:09] LABS: Prothrombin Time 11.2 Seconds (9.4-12.1)
[2018-08-11 05:11] LABS: Activated Partial Thrombo Time 31.7 Seconds (26.0-36.0)
[2018-08-11 05:19] LABS: Alanine Aminotransferase 11 Units/L (7-52); Albumin 3.5 g/dL (3.5-5.7); Albumin/Globulin Ratio 1.2 (1.1-2.2); Alkaline Phosphatase 68 Units/L (34-104); Aspartate Amino Transferase 9 Units/L (13-39); BUN/Creatinine Ratio 20 (6-26); Bilirubin,Total 0.4 mg/dL (0.3-1.0); Blood Urea Nitrogen 13 mg/dL (8-23); Calcium 8.6 mg/dL (8.6-10.3); Carbon Dioxide 25 mEq/L (23-29); Chloride 106 mEq/L (98-107); Chol/HDL Ratio 7.4 (0-4.9); Cholesterol 223 mg/dL (< 200); Globulin 2.9 g/dL (2.4-3.5); Glucose 116 mg/dL (70-105); HDL Cholesterol 30 mg/dL (40-59); LDL Cholesterol,Calculated 152 mg/dL (0-99); Magnesium 1.8 mg/dL (1.6-2.6); Osmolality,Calculated 287 (280-300); Phosphorous 3.6 mg/dL (2.7-4.5); Potassium 4.1 mEq/L (3.5-5.1); Sodium 138 mEq/L (136-145); Total Protein 6.4 g/dL (6.4-8.9); Triglycerides 206 mg/dL (< 150); eGFR For Non-African Americans > 60 (> 60)
[2018-08-11] MEDS: Aspirin 81 MG TAB.CHEW PO SCH (07:55)
[2018-08-11] MEDS: Loratadine 10 MG TABLET PO SCH (07:55)
[2018-08-11] MEDS: Gabapentin 300 MG CAPSULE PO SCH ×3 (07:55→21:33)
[2018-08-11 09:32] LABS: Bilirubin,Urine Negative (Negative); Blood,Urine Negative (Negative); Clarity,Urine Clear (Clear); Color,Urine Yellow (Yellow); Glucose,Urine (UA) Normal (Normal); Ketones,Urine Negative (Negative); Leukocyte Esterase,Urine Negative (Negative); Nitrite,Urine Negative (Negative); PH,Urine 5.5 pH Units (5.0-8.0); Protein,Urine Negative (Neg-Trace); Specific Gravity,Urine 1.013 (1.010-1.025); Urobilinogen,Urine Normal (Normal)
--- NOTE | 2018-08-11 10:16 | Electrocardiograph Report ---
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
--- NOTE | 2018-08-11 12:12 | Internal Med Progress Note ---
Hospitalist Progress Note - Encounter Date of Encounter: 08/11/18 Time of Encounter: 11:43 - Subjective Interval History: Patient seen and examined this morning at bedside. No acute overnight events. Patient currently feeling at her baseline and does not feel she had any slurring of speech tingling or numbness or weakness. - Exam Vitals: Temp Pulse Resp BP Pulse Ox 98.1 F 77 18 134/84 94 08/11/18 11:40 08/11/18 11:40 08/11/18 11:40 08/11/18 11:40 08/11/18 11:40 Exam: General: In no acute distress. Obese Respiratory exam: CTAB. no accessory muscle use, rales, rhonchi, wheezes Cardiovascular exam: RRR, +S1, +S2. no murmur, gallop, rubs. GI/Abdominal exam: Non-tender, Non-distended, normal bowel sounds, soft, no peritoneal signs. Extremities exam: no pedal edema, pulses palpable in b/l lower extremities. no calf tenderness Neurological exam: CN II-XII intact, mildly deviated tongue to Lt, AO X3, no focal deficits, slurry speech, weakness or numbness. Skin exam: Rt neck scar from endarterectomy - Assessment and Plan (1) Obesity (BMI 30-39.9) Current Visit: No Status: Chronic (2) Transient ischemic attack (TIA) Current Visit: No Status: Acute (3) Mixed hyperlipidemia Current Visit: No Status: Chronic (4) Essential hypertension Current Visit: No Status: Chronic (5) DVT prophylaxis Current Visit: Yes Status: Acute - Summary of Assessment and Plan Summary of Assessment and Plan: Assessment Transient ischemic attack Previous TIA/stroke Obesity Essential hypertension fibromyalgia DVT prophylaxis Plan - currently symptoms resolved. f/u MRI, carotid doppler and ECHO. EKG with sinus rhythm - cw aspirin. appears not on statin. Will start atorvastatin 40 mg. - Time Spent with Patient Total time spent is greater than 50% in coordination of care (as documented) at patient's floor/unit and/or counseling patient: Internal Medicine: Result - Labs CBC & Chem 7: 08/11/18 04:15 08/11/18 04:15 Labs: Short CBC 08/11/18 Range/Units 04:15 WBC 5.8 (4.3-11.1) K/mcL Hgb 11.5 (11.5-15.4) g/dL Hct 35.1 L (35.3-44.9) % Plt Count 176 (140-400) K/mcL Neutrophils # 2.0 (1.6-8.9) K/mcL BMP 08/11/18 04:15 Sodium 138 Potassium 4.1 Chloride 106 Carbon Dioxide 25 BUN 13 Creatinine 0.66 Glucose 116 H Calcium 8.6 Liver Function 08/11/18 Range/Units 04:15 Total Bilirubin 0.4 (0.3-1.0) mg/dL AST 9 L (13-39) Units/L ALT 11 (7-52) Units/L Alkaline Phosphatase 68 (34-104) Units/L Albumin 3.5 (3.5-5.7) g/dL Urine 08/11/18 Range/Units 08:58 Urine Color Yellow (Yellow) Urine Clarity Clear (Clear) Urine pH 5.5 (5.0-8.0) pH Units Ur Specific [place] 1.013 (1.010-1.025) Urine Protein Negative (Neg-Trace) mg/dL Urine Glucose (UA) Normal (Normal) mg/dL - ABG Interpretation ABG results: PT/INR, D-dimer PT 11.2 Seconds (9.4-12.1) 08/11/18 04:15 - Impressions Impressions Head CT 08/10/18 10:25 IMPRESSION: 1. No acute intracranial abnormality. D/ / Sven Eckert MD / Sven Eckert MD Interpreting Provider: Sven Eckert MD Consult Discharge Plan - Plan Referrals: Saroj Tello Jr, MD [Primary Care Provider] - 08/19/18 10:00 am (2) Transient ischemic attack (TIA) Qualifiers: Transient cerebral ischemia type: carotid artery syndrome (hemispheric) Qualified Code(s): G45.1 - Carotid artery syndrome (hemispheric)
[2018-08-11] MEDS: Ibuprofen 800 MG TABLET PO PRN (14:37)
[2018-08-11] MEDS ORDERED: Perflutren Lipid Microsphere 1.3 ML in 0.9 % Sodium Chloride 8.7 ML IVP ONE (18:00)
[2018-08-12] MEDS: Aspirin 81 MG TAB.CHEW PO SCH (08:39)
[2018-08-12] MEDS: Loratadine 10 MG TABLET PO SCH (08:39)
[2018-08-12] MEDS: Ibuprofen 800 MG TABLET PO PRN (08:39)
[2018-08-12] MEDS: Gabapentin 300 MG CAPSULE PO SCH (08:40)
[2018-08-12 10:38] VITALS: BP 127/78
--- NOTE | 2018-08-12 11:15 | Discharge Summary ---
- NOTES TO OUTPATIENT PROVIDER Notes to Outpatient Provider: Patient started on atorvastatin. Workup was negative for stroke. We will need neurology follow-up within a few weeks. Date of Encounter: 08/12/18 Time of Encounter: 11:12 - Discharge Diagnosis (1) Obesity (BMI 30-39.9) Priority: Secondary Status: Chronic (2) Transient ischemic attack (TIA) Priority: Primary Status: Acute Qualifiers: Transient cerebral ischemia type: carotid artery syndrome (hemispheric) Qualified Code(s): G45.1 - Carotid artery syndrome (hemispheric) (3) Mixed hyperlipidemia Priority: Secondary Status: Chronic (4) Essential hypertension Priority: Secondary Status: Chronic (5) DVT prophylaxis Priority: Secondary Status: Acute (6) History of right-sided carotid endarterectomy Priority: Secondary Status: Acute (7) Fibromyalgia Priority: Secondary Status: Chronic (8) History of migraine headaches Priority: Secondary Status: Chronic Hospital course: Ms. Meraz is a 58 year old female past medical history of carotid endarterectomy on right, fibromyalgia, migraine, previous TIA/stroke, obesity came with brief episode of slurring of speech. She was admitted for stroke and TIA workup. Her symptoms had resolved quickly by the time she came to the ER. Patient had MRI which was without acute stroke. Echocardiogram showed EF of 60%, normal LV and RV function, no PFO and normal segmental wall motion. Carotid do appear showed right carotid artery with minimal plaque and left with 40-59% stenosis. Patient remains symptom-free without any weakness or numbness while in hospital. Patient not on statin at home which will be prescribed on discharge. Patient otherwise stable to be discharged home to follow-up with PCP and neurology as outpatient. Discharge discussed with: patient, nurse, social work - Time Spent with Patient Total time spent providing and/or coordinating discharge services: Time spent: Greater than 30 minutes (35) - Discharge Medications Prescriptions: New Atorvastatin [Lipitor] 40 mg PO HS 30 Days #30 tablet Continued Ibuprofen [Motrin] 800 mg PO Q8HR PRN PRN Reason: Pain Rabeprazole Sodium [Aciphex] 20 mg PO DAILY Gabapentin [Neurontin] 300 mg PO TID Cetirizine HCl [Zyrtec] 10 mg PO DAILY Aspirin 81 mg PO DAILY #30 tab.chew Tizanidine HCl 4 mg PO TID PRN PRN Reason: Muscle Spasm Citalopram Hydrobromide [Citalopram HBr] 40 mg PO DAILY Home Medications: Cetirizine HCl [Zyrtec] 10 mg PO DAILY 07/08/16 [History] Gabapentin [Neurontin] 300 mg PO TID 07/08/16 [History] Ibuprofen [Motrin] 800 mg PO Q8HR PRN 07/08/16 [History] Rabeprazole Sodium [Aciphex] 20 mg PO DAILY 07/08/16 [History] Aspirin 81 mg PO DAILY #30 tab.chew 07/09/16 [Rx] Tizanidine HCl 4 mg PO TID PRN 07/18/16 [History] Citalopram Hydrobromide [Citalopram HBr] 40 mg PO DAILY 08/10/18 [History] Atorvastatin [Lipitor] 40 mg PO HS 30 Days #30 tablet 08/12/18 [Rx] Allergies/Adverse Reactions: Allergy/AdvReac Type Severity Reaction Status Date / Time ketoprofen [From Orudis] Allergy Rash Verified 08/10/18 16:19 nabumetone [From Relafen] Allergy Rash Verified 08/10/18 16:19 Date of admission: 08/10/18 12:38 Primary care physician: Saroj Tello Jr, MD Discharging clinician: Gilda Car - Constitutional Vitals: Temp Pulse Resp BP Pulse Ox 97.6 F 75 16 127/78 97 08/12/18 10:37 08/12/18 10:37 08/12/18 10:37 08/12/18 10:37 08/12/18 10:37 Exam: General: In no acute distress. Obese Respiratory exam: CTAB. no accessory muscle use, rales, rhonchi, wheezes Cardiovascular exam: RRR, +S1, +S2. no murmur, gallop, rubs. GI/Abdominal exam: Non-tender, Non-distended, normal bowel sounds, soft, no peritoneal signs. Extremities exam: no pedal edema, pulses palpable in b/l lower extremities. no calf tenderness Neurological exam: CN II-XII intact, mildly deviated tongue to Lt, AO X3, no focal deficits, slurry speech, weakness or numbness. Skin exam: Rt neck scar from endarterectomy - Patient Status Disposition: Home, Self-Care Condition: Fair - Discharge Instructions Follow Up With: Saroj Tello Jr, MD [Primary Care Provider] - 08/19/18 10:00 am - Diet and Activity Activity: increase activity as tolerated
== END 2018-08-12 11:53 | disposition home or self-care (01) ==
LOC: 3BNU 10:05 → EMEROOARM 10:05 → SUATTDRO 12:38 → 3BNU 13:40
PROVIDERS: ADMIT Internal Medicine Nephrology; ATTEND Internal Medicine

== ENCOUNTER 2019-03-05 14:16 | Observation (INO) ==
[2019-03-05] MEDS ORDERED: Isovue-370 500 ML BOTTLE IVP ONE (14:40)
[2019-03-05 15:12] LABS: Hematocrit 36.5 % (35.3-44.9); Hemoglobin 12.4 g/dL (11.5-15.4); Mean Corpuscular Hemoglobin 32.9 pg (28.0-33.3); Mean Corpuscular Volume 96.8 fL (83.0-100.0); Mean Platelet Volume 10.3 fL (9.4-12.4); Platelet Count 189 K/mcL (140-400); Red Blood Count 3.77 M/mcL (3.82-4.97); Red Cell Distribution Width 12.7 % (11.5-14.5); White Blood Count 6.4 K/mcL (4.3-11.1)
[2019-03-05 15:28] LABS: BUN/Creatinine Ratio 7 (6-26); Blood Urea Nitrogen 5 mg/dL (8-23); Carbon Dioxide 27 mEq/L (23-29); Chloride 106 mEq/L (98-107); Glucose 92 mg/dL (70-105); Osmolality,Calculated 285 (280-300); Potassium 3.8 mEq/L (3.5-5.1); Sodium 139 mEq/L (136-145); Troponin I < 0.03 ng/mL (< 0.04); eGFR For African Americans > 60 (> 60); eGFR For Non-African Americans > 60 (> 60)
[2019-03-05 15:31] LABS: Bilirubin,Urine Negative (Negative); Blood,Urine Negative (Negative); Color,Urine Yellow (Yellow); Glucose,Urine (UA) Normal (Normal); Ketones,Urine Negative (Negative); Leukocyte Esterase,Urine Negative (Negative); Nitrite,Urine Negative (Negative); Protein,Urine Negative (Neg-Trace); Specific Gravity,Urine 1.019 (1.010-1.025); Urobilinogen,Urine Normal (Normal)
[2019-03-05 15:33] LABS: Bacteria,Urine Moderate per hpf (None-Few); Hyaline Casts,Urine None Seen per lpf (None-Few); Squamous Epithelial Cell,Urine Many per lpf (None-Few)
[2019-03-05 15:37] LABS: Clarity,Urine Slightly Cloudy (Clear)
[2019-03-05 15:48] LABS: RBC,Urine 0-3 per hpf (0-3)
[2019-03-05] MEDS ORDERED: Naloxone 0.4 MG/ML INJ IVP PRN (16:54)
[2019-03-05] MEDS ORDERED: Ondansetron 4 MG/2 ML VIAL IVP PRN (16:54)
[2019-03-05] MEDS ORDERED: Ibuprofen 800 MG TABLET PO ONE (23:43)
[2019-03-06] MEDS: Gabapentin 300 MG CAPSULE PO SCH ×3 (00:08→15:15)
[2019-03-06 08:09] LABS: Hematocrit 38.4 % (35.3-44.9); Hemoglobin 13.4 g/dL (11.5-15.4); Mean Corpuscular HGB Conc 34.9 g/dL (31.6-35.5); Mean Corpuscular Hemoglobin 33.1 pg (28.0-33.3); Mean Corpuscular Volume 94.8 fL (83.0-100.0); Mean Platelet Volume 10.3 fL (9.4-12.4); Platelet Count 202 K/mcL (140-400); Red Blood Count 4.05 M/mcL (3.82-4.97); Red Cell Distribution Width 12.9 % (11.5-14.5); White Blood Count 6.1 K/mcL (4.3-11.1)
[2019-03-06 08:30] LABS: BUN/Creatinine Ratio 11 (6-26); Blood Urea Nitrogen 8 mg/dL (8-23); Calcium 8.6 mg/dL (8.6-10.3); Carbon Dioxide 28 mEq/L (23-29); Chloride 106 mEq/L (98-107); Glucose 106 mg/dL (70-105); Osmolality,Calculated 291 (280-300); Potassium 4.2 mEq/L (3.5-5.1); Sodium 141 mEq/L (136-145); eGFR For African Americans > 60 (> 60); eGFR For Non-African Americans > 60 (> 60)
[2019-03-06] MEDS ORDERED: Aspirin Enteric Coated 81 MG Tablet PO SCH (09:00)
[2019-03-06 09:51] LABS: Estimated Average Glucose 128 mg/dl
[2019-03-06] MEDS ORDERED: Ibuprofen 800 MG TABLET PO PRN (10:25)
[2019-03-06 14:41] VITALS: BP 149/87
== END 2019-03-06 17:15 | disposition home or self-care (01) ==
LOC: 3BNU 14:16 → EMEROOARM 14:16 → 3BNU 19:40
PROVIDERS: ADMIT Internal Medicine; ATTEND Internal Medicine